=== PATIENT | male | born 1985 | race Caucasian/White ===

== ENCOUNTER 2019-10-07 09:46 | Emergency (ER) | payer OTHER, SELFPAY ==
[2019-10-07 09:49] VITALS: BP 137/97; PULSE 104; RESP 18; TEMP 38; O2SAT 96; BMI 35.7
--- NOTE | 2019-10-07 10:05 | ED_ITS ---
HPI - Pediatric Fever General: Chief Complaint: Fever Stated Complaint: Fever Time Seen by Provider: 10/07/19 10:05 PFSH ED PFSH: Statuses (acute, chronic, etc) shown below reflect problem list status as previously entered and may not be historically accurate Social History Smoking and tobacco status: current every day smoker Course ED course: [address] [address] XRay Report Signed Patient: Kranthi Morales MR#: [id number] : 1985 Acct:[id number] Age/Sex: 34 / M ADM Date: 10/07/19 Loc: ER Attending Dr: Ordering Physician: Adriana Jones Date of Service: 10/07/19 Procedure(s): XR chest 1V portable [id number] Accession Number(s): [id number] Report Number: [id number] WS: [id number] Portable AP upright chest, 10/07/2019 Clinical Data: fever Comparison: None. Findings: No nodules, masses or effusions are seen. The heart is normal. The pulmonary vascularity is not increased. No pneumonia or pneumothorax is seen. XR/XR chest 1V portable [id number] Impression: Negative chest. Dictated By: India Bernal MD Signed By: India Bernal MD Signed Date/Time:10/07/19 1036 DD/ 1036 Vital Signs: Vital signs: Vital Signs Temperature 100.4 F H 10/07/19 09:49 Pulse Rate 104 H 10/07/19 09:49 Respiratory Rate 18 10/07/19 09:49 Blood Pressure 137/97 10/07/19 09:49 Pulse Oximetry 96 10/07/19 09:49 Medical Decision Making Lab Data: Labs: Lab Results 10/07/19 Range/Units 10:34 WBC 11.2 H (4.0-10.0) 10^3/ uL RBC 5.54 H (4.1-5.3) 10^6/u L Hgb 16.5 (11.7-16.6) g/dL Hct 47.5 (42.0-52.0) % MCV 85.7 (80-94) fL MCH 29.8 (28.0-34.0) pg MCHC 34.7 (30.0-36.0) g/dL RDW 12.1 (12.1-15.1) % Plt Count 188 (130-400) 10^3/c mm MPV 8.6 (7.4-10.4) fL Neut % (Auto) 77.3 % Lymph % (Auto) 11.5 % [place] % (Auto) 10.6 % Eos % (Auto) 0.0 % Baso % (Auto) 0.2 % Neut # (Auto) 8.7 H (1.8-7.7) 10^3/u L Lymph # (Auto) 1.3 (0.8-4.8) 10^3/u L [place] # (Auto) 1.2 H (0.2-0.9) 10^3/u L Eos # (Auto) 0.0 (0.0-0.8) 10^3/u L Baso # (Auto) 0.0 (0.0-0.1) 10^3/u L Nucleated RBC % (a uto) 0 % Nucleated RBCs # 0.0 /100WBC Discharge Plan Discharge Prescriptions: No Action No Known Home Medications RF: 0 Coding Level of Care Code ED Certified Respiratory Therapist for [facility]
--- NOTE | 2019-10-07 10:18 | XR_ITS ---
WS: [id number] Portable AP upright chest, 10/07/2019 Clinical Data: fever Comparison: None. Findings: No nodules, masses or effusions are seen. The heart is normal. The pulmonary vascularity is not increased. No pneumonia or pneumothorax is seen. XR/XR chest 1V portable [id number] Impression: Negative chest.
--- NOTE | 2019-10-07 10:20 | PC.NURSE ---
pt to room. pt placed on O2 saturation and NIBP monitor. Pt placed in bed, HOB elevated, brakes on, bed in low position.
--- NOTE | 2019-10-07 10:34 | PC.NURSE ---
CXR at bedside
[2019-10-07] MEDS: acetaminophen 500 mg Tablet PO (10:39)
[2019-10-07] MEDS: sodium chloride 0.9% 1,000 ML 999 ML IV (10:39)
--- NOTE | 2019-10-07 10:40 | PC.NURSE ---
FLU SWAB COLLECTED by nurse. labeled and sent to lab
[2019-10-07 10:41] LABS: Basophils % 0.2 %; Hematocrit 47.5 % (42.0-52.0); Hemoglobin 16.5 g/dL (11.7-16.6); Lymphocytes # 1.3 10^3/uL (0.8-4.8); Lymphocytes % 11.5 %; Mean Corpuscular HGB Conc 34.7 g/dL (30.0-36.0); Mean Corpuscular Hemoglobin 29.8 pg (28.0-34.0); Mean Corpuscular Volume 85.7 fL (80-94); Mean Platelet Volume 8.6 fL (7.4-10.4); Monocytes # 1.2 10^3/uL (0.2-0.9); Monocytes % 10.6 %; Neutrophils # 8.7 10^3/uL (1.8-7.7); Neutrophils % 77.3 %; Nucleated Red Blood Cells % 0 %; Platelet Count 188 10^3/cmm (130-400); Red Blood Count 5.54 10^6/uL (4.1-5.3); Red Cell Distribution Width 12.1 % (12.1-15.1); White Blood Count 11.2 10^3/uL (4.0-10.0)
[2019-10-07 11:07] LABS: Alanine Aminotransferase 48 U/L (0-41); Albumin Level 4.2 g/dL (3.5-5.2); Alkaline Phosphatase 76 IU/L (40-130); Anion Gap 16.8 (5-19); Aspartate Amino Transferase 20 U/L (0-40); Blood Urea Nitrogen 12 mg/dL (6-20); Calcium 9.2 mg/Dl (8.6-10.0); Carbon Dioxide 23 mmol/L (22-29); Chloride 98 mmol/L (98-107); Globulin 2.8 g/dL (1.3-4.6); Glomerular Filtration Rate 97.8 mL/min (90-130); Glucose 128 mg/dL (74-109); Potassium 3.8 mmol/L (3.5-5.1); Sodium 134 mmol/L (136-145); Total Bilirubin 0.8 mg/dL (0.15-1.2)
[2019-10-07 11:53] VITALS: BP 127/78; PULSE 95; TEMP 37.5; O2SAT 95
--- NOTE | 2019-10-07 11:55 | W.ED.FEVER ---
HPI - Fever General: Chief Complaint: Fever Stated Complaint: Fever Time Seen by Provider: 10/07/19 10:05 Source: patient Mode of arrival: ambulatory Limitations: no limitations History of Present Illness: HPI Narrative: fever as high as 102 measured x few days ; complains of body aches, congestion, sore throat MD elicited complaint: fever Onset (ago): day(s) Measured temperature: 102 F Associated symptoms: Deny abdominal pain, chest pain, diarrhea, dysuria, headache(s), nausea or vomiting Treatments prior to arrival fever: acetaminophen Review of Systems Const: Reports: fever and body aches ENMT: Reports: throat pain Card: Denies: chest pain, palpitations, lightheadedness, syncope or pre-syncope Resp: Denies: shortness of breath or productive cough GI: Denies: abdominal pain, nausea, vomiting or diarrhea : Denies: difficulty urinating or painful urination Musc: Denies: neck pain or back pain Skin/Breast: Denies: rash Neuro: Denies: headache PFSH ED PFSH: Statuses (acute, chronic, etc) shown below reflect problem list status as previously entered and may not be historically accurate Social History Smoking and tobacco status: current every day smoker Physical Exam Const: COMMON NORMALS: no apparent distress, oriented x3, no limitations and well nourished GENERAL APPEARANCE: cooperative and well developed HENMT: COMMON NORMALS: normocephalic, head/scalp atraumatic, external ears normal, EAC's normal and external nose normal HEAD & SCALP: normocephalic and atraumatic FACE & SINUS: sinus tenderness maxillary (mild bilaterally) NOSE: external nose normal EXTERNAL EAR: Yes external ears normal EXTERNAL AUDITORY CANAL: EAC's normal MOUTH: oral and palatal mucosa normal THROAT: posterior oropharynx normal, tonsils normal and uvula midline Neck/C-Spine: COMMON NORMALS: full ROM, no lymphadenopathy and no meningeal signs Chest: COMMONS NORMALS: inspection of chest normal Resp: COMMON NORMALS: normal respiratory effort and clear to auscultation bilaterally AUSCULTATION: clear to auscultation bilaterally Cardio: COMMON NORMALS: regular rate and regular rhythm RATE: regular rate RHYTHM: regular rhythm GI: COMMON NORMALS: normal to inspection, nondistended, normoactive bowel sounds INSPECTION: Yes normal to inspection AUSCULTATION: Yes normoactive bowel sounds Extremity: COMMON NORMALS: normal to inspection Neuro: COMMON NORMALS: oriented x3 MENINGEAL SIGNS: Yes no meningeal signs GAIT: Yes normal gait Skin: COMMON NORMALS: no rashes or lesions noted and skin turgor normal GENERAL SKIN EXAM: no rashes or lesions noted and turgor normal Course ED course: [address] [address] XRay Report Signed Patient: Kranthi Morales MR#: [id number] : 1985 Acct:[id number] Age/Sex: 34 / M ADM Date: 10/07/19 Loc: ER Attending Dr: Ordering Physician: Adriana Jones Date of Service: 10/07/19 Procedure(s): XR chest 1V portable [id number] Accession Number(s): [id number] Report Number: [id number] WS: [id number] Portable AP upright chest, 10/07/2019 Clinical Data: fever Comparison: None. Findings: No nodules, masses or effusions are seen. The heart is normal. The pulmonary vascularity is not increased. No pneumonia or pneumothorax is seen. XR/XR chest 1V portable [id number] Impression: Negative chest. Dictated By: India Bernal MD Signed By: India Bernal MD Signed Date/Time:10/07/19 1036 DD/ 1036 Vital Signs: Vital signs: Vital Signs Temperature 99.5 F 10/07/19 11:53 Pulse Rate 95 10/07/19 11:53 Respiratory Rate 18 10/07/19 09:49 Blood Pressure 127/78 10/07/19 11:53 Pulse Oximetry 95 10/07/19 11:53 MDM - Fever Lab Data: Attestation: I reviewed the patient's lab results. Labs: Lab Results 10/07/19 10/07/19 10/07/19 Range/Units 10:34 10:34 10:41 WBC 11.2 H (4.0-10.0) 10^3/ uL RBC 5.54 H (4.1-5.3) 10^6/u L Hgb 16.5 (11.7-16.6) g/dL Hct 47.5 (42.0-52.0) % MCV 85.7 (80-94) fL MCH 29.8 (28.0-34.0) pg MCHC 34.7 (30.0-36.0) g/dL RDW 12.1 (12.1-15.1) % Plt Count 188 (130-400) 10^3/c mm MPV 8.6 (7.4-10.4) fL Neut % (Auto) 77.3 % Lymph % (Auto) 11.5 % [place] % (Auto) 10.6 % Eos % (Auto) 0.0 % Baso % (Auto) 0.2 % Neut # (Auto) 8.7 H (1.8-7.7) 10^3/u L Lymph # (Auto) 1.3 (0.8-4.8) 10^3/u L [place] # (Auto) 1.2 H (0.2-0.9) 10^3/u L Eos # (Auto) 0.0 (0.0-0.8) 10^3/u L Baso # (Auto) 0.0 (0.0-0.1) 10^3/u L Nucleated RBC % (a uto) 0 % Nucleated RBCs # 0.0 /100WBC Sodium 134 L (136-145) mmol/L Potassium 3.8 (3.5-5.1) mmol/L Chloride 98 (98-107) mmol/L Carbon Dioxide 23 (22-29) mmol/L Anion Gap 16.8 (5-19) BUN 12 (6-20) mg/dL Creatinine 0.9 (0.7-1.2) mg/dL GFR Calculation 97.8 (90-130) mL/min Glucose 128 H (74-109) mg/dL Calcium 9.2 (8.6-10.0) mg/Dl Total Bilirubin 0.8 (0.15-1.2) mg/dL AST 20 (0-40) U/L ALT 48 H (0-41) U/L Alkaline Phosphata se 76 (40-130) IU/L Total Protein 7.0 (6.6-8.7) g/dL Albumin 4.2 (3.5-5.2) g/dL Globulin 2.8 (1.3-4.6) g/dL Urine Color (Yellow) Urine Appearance (CLEAR) Urine pH (5-7) Ur Specific Gravit y (1.005-1.030) Urine Protein (Negative) Urine Glucose (UA) (Normal) Urine Ketones (Negative) Urine Occult Blood (Negative) Urine Nitrate (Negative) Urine Bilirubin (NEGATIVE) Urine Urobilinogen (Negative) mg/dL Ur Leukocyte [place] ase (Negative) Influenza Type A A g Negative (Negative) POC Influenza B Ag Negative (Negative) 10/07/19 Range/Units 12:22 WBC (4.0-10.0) 10^3/ uL RBC (4.1-5.3) 10^6/u L Hgb (11.7-16.6) g/dL Hct (42.0-52.0) % MCV (80-94) fL MCH (28.0-34.0) pg MCHC (30.0-36.0) g/dL RDW (12.1-15.1) % Plt Count (130-400) 10^3/c mm MPV (7.4-10.4) fL Neut % (Auto) % Lymph % (Auto) % [place] % (Auto) % Eos % (Auto) % Baso % (Auto) % Neut # (Auto) (1.8-7.7) 10^3/u L Lymph # (Auto) (0.8-4.8) 10^3/u L [place] # (Auto) (0.2-0.9) 10^3/u L Eos # (Auto) (0.0-0.8) 10^3/u L Baso # (Auto) (0.0-0.1) 10^3/u L Nucleated RBC % (a uto) % Nucleated RBCs # /100WBC Sodium (136-145) mmol/L Potassium (3.5-5.1) mmol/L Chloride (98-107) mmol/L Carbon Dioxide (22-29) mmol/L Anion Gap (5-19) BUN (6-20) mg/dL Creatinine (0.7-1.2) mg/dL GFR Calculation (90-130) mL/min Glucose (74-109) mg/dL Calcium (8.6-10.0) mg/Dl Total Bilirubin (0.15-1.2) mg/dL AST (0-40) U/L ALT (0-41) U/L Alkaline Phosphata se (40-130) IU/L Total Protein (6.6-8.7) g/dL Albumin (3.5-5.2) g/dL Globulin (1.3-4.6) g/dL Urine Color Yellow (Yellow) Urine Appearance Clear (CLEAR) Urine pH 7.0 (5-7) Ur Specific Gravit y 1.005 (1.005-1.030) Urine Protein Neg (Negative) Urine Glucose (UA) Norm (Normal) Urine Ketones Negative (Negative) Urine Occult Blood Neg (Negative) Urine Nitrate Negative (Negative) Urine Bilirubin Neg (NEGATIVE) Urine Urobilinogen 1 H (Negative) mg/dL Ur Leukocyte [place] ase Negative (Negative) Influenza Type A A g (Negative) POC Influenza B Ag (Negative) Discharge Plan Discharge Patient Disposition: Home, Self-Care Clinical Impression: Viral illness Condition: Stable Prescriptions: No Action No Known Home Medications RF: 0 Discharge Orders: Discharge Order (Routine); Ordered 10/07/19 Ordered By: Adriana Jones Discharge Diet: Advance as tolerated Discharge Activity: Increase activity as tolerated Patient Instructions: Fever - Adult, Viral Syndrome (ED) Activity Restrictions/Additional Instructions: Tylenol/Motrin as directed for fevers/body aches. Rest. Push fluids. Follow up with primary care in 3-4 days for continued symptoms. Coding Level of Care Code ED Studio Designer for [facility] rGeen Exam Problem Focused
[2019-10-07 12:33] LABS: Add Urine Microscopic? NO
[2019-10-07 12:36] LABS: Urine Appearance Clear (CLEAR); Urine Color Yellow (Yellow)
[2019-10-07 12:37] LABS: Bilirubin Urine Neg (NEGATIVE); Blood Urine Neg (Negative); Glucose Urine UA Norm (Normal); Ketones Urine Negative (Negative); Leukocyte Esterase Urine Negative (Negative); Nitrate Urine Negative (Negative); Protein Urine Neg (Negative); Specific Gravity, Urine 1.005 (1.005-1.030); Urobilinogen Urine 1 mg/dL (Negative)
[2019-10-07 13:01] LABS: Influenza A by IFA Negative (Negative)
[2019-10-07 13:02] LABS: Influenza B by IFA Negative (Negative)
[2019-10-07 13:32] VITALS: BP 137/76; PULSE 86; TEMP 37; O2SAT 95
== END 2019-10-07 13:32 | disposition home or self-care (01) ==
PROVIDERS: Emergency Provider Physician Assistant
DX: B34.9 Viral infection, unspecified (principal); F17.210 Nicotine dependence, cigarettes, uncomplicated
CPT/HCPCS: 71045; 80053; 81003; 85025; 87804; 96360; 99281; J7030

== ENCOUNTER 2022-03-31 23:40 | Emergency (ER) | payer MEDICAID, SELFPAY ==
[2022-04-01 00:32] VITALS: BP 116/81; PULSE 90; RESP 18; TEMP 36.8; O2SAT 97; BMI 39.5
[2022-04-01 00:57] VITALS: BP 145/98; PULSE 93; RESP 18; O2SAT 98
[2022-04-01 01:13] LABS: Basophils # 0.1 10^3/uL (0.0-0.1); Basophils % 0.7 %; Eosinophils # 0.1 10^3/uL (0.0-0.8); Eosinophils % 1.3 %; Hematocrit 49.1 % (42.0-52.0); Hemoglobin 17.7 g/dL (11.7-16.6); Lymphocytes # 2.4 10^3/uL (0.8-4.8); Lymphocytes % 27.4 %; Mean Corpuscular Hemoglobin 30.3 pg (28.0-34.0); Mean Corpuscular Volume 83.9 fl (80-94); Mean Platelet Volume 8.8 fL (7.4-10.4); Monocytes % 11.3 %; Neutrophils # 5.19 10^3/uL (1.8-7.7); Neutrophils % 59.1 %; Nucleated Red Blood Cells % 0 %; Platelet Count 233 10^3/cmm (130-400); Red Blood Count 5.85 10^6/uL (4.1-5.3); Red Cell Distribution Width 12.5 % (12.1-15.1); White Blood Count 8.8 10^3/uL (4.0-10.0)
[2022-04-01 01:36] LABS: Alanine Aminotransferase 58 U/L (0-41); Albumin Level 4.3 g/dL (3.5-5.2); Alkaline Phosphatase 79 IU/L (40-130); Anion Gap 13.9 (5-19); Aspartate Amino Transferase 21 U/L (0-40); Blood Urea Nitrogen 17 mg/dL (6-20); Calcium 8.9 mg/dL (8.5-10.5); Carbon Dioxide 25 mmol/L (22-29); Chloride 104 mmol/L (98-107); Globulin 2.8 g/dL (1.3-4.6); Glucose 102 mg/dL (65-115); Lipase 16 U/L (13-60); Osmolality Calculated 290 mOsm/kg (285-295); Potassium 3.9 mmol/L (3.5-5.1); Sodium 139 mmol/L (136-145); Total Bilirubin 0.5 mg/dL (0.15-1.2); Total Protein 7.1 g/dL (6.6-8.7)
[2022-04-01 01:37] LABS: Add Urine Microscopic? NO; Charge for UA Resulting for Rev
[2022-04-01 01:41] LABS: Bilirubin Urine Neg (Negative); Blood Urine Neg (Negative); Glucose Urine UA Norm (Normal); Ketones Urine Negative (Negative); Leukocyte Esterase Urine Negative (Negative); Nitrate Urine Negative (Negative); Protein Urine Neg (Negative); Specific Gravity, Urine 1.015 (1.005-1.030); Urine Appearance Clear (CLEAR); Urine Color Yellow (Yellow); Urobilinogen Urine Norm (Negative); pH Urine 7 (5-7)
--- NOTE | 2022-04-01 01:57 | CTR_ITS ---
PROCEDURE INFORMATION: Exam: CT Abdomen And Pelvis Without Contrast Exam date and time: 04/01/2022 2:10 AM Age: 37 years old Clinical indication: Abdominal pain; Localized; Left lower quadrant (llq); Prior surgery; Surgery type: Gb; Patient HX: C/O llq/rectal pain; Additional info: Llq pain and rectal pain TECHNIQUE: Imaging protocol: Computed tomography of the abdomen and pelvis without contrast. Radiation optimization: All CT scans at this facility use at least one of these dose optimization techniques: automated exposure control; mA and/or kV adjustment per patient size (includes targeted exams where dose is matched to clinical indication); or iterative reconstruction. COMPARISON: CR XR chest 1V portable [id number] 10/07/2019 10:29 AM RADIATION DOSE METRICS: Total DLP (mGy-cm): 2105.26 FINDINGS: Liver: Normal. No mass. Gallbladder and bile ducts: Status post cholecystectomy. Pancreas: Normal. No ductal dilation. Spleen: Normal. No splenomegaly. Adrenal glands: Normal. No mass. Kidneys and ureters: Normal. No hydronephrosis. Stomach and bowel: Unremarkable. No obstruction. No mucosal thickening. Appendix: The appendix is visualized and is normal in configuration. Intraperitoneal space: Unremarkable. No free air. No significant fluid collection. Vasculature: Unremarkable. No abdominal aortic aneurysm. Lymph nodes: There are small retroperitoneal lymph nodes seen that are below CT criteria for lymphadenopathy. Urinary bladder: Unremarkable as visualized. Reproductive: Unremarkable as visualized. Bones/joints: Unremarkable. No acute fracture. Soft tissues: Unremarkable. CT/CT abdomen pelvis wo con [id number] IMPRESSION: There are no acute abdominal findings.
--- NOTE | 2022-04-01 01:58 | W.ED.ABDPA2 ---
HPI - Abdominal Pain General: Chief Complaint: Abdominal Pain Stated Complaint: rectal issues/left leg numbness/abdominal pain Time Seen by Provider: 04/01/22 00:52 History of Present Illness: Patient is a 37-year-old male comes to the ED with abdominal pain and rectal pain. Patient says symptoms started approximately 3 days ago. Abdominal pain is located in the left lower quadrant of the abdomen and radiates down to his left groin. Pain is rated mild to moderate and is episodic. He also reports having some constant rectal pain that has gotten more tender and painful over the past 3 days. He says sitting in certain positions causes discomfort. Denies any current rectal bleeding. He has been having normal daily bowel movements over the past couple days and denies any straining or constipation. Associated Symptoms: Denies chills, constipation, diarrhea, dysuria, fever(s), hematochezia, hematuria, nausea and vomiting Review of Systems Const: Denies: fever(s), chills or fatigue Eyes: Denies: change in vision or eye discomfort ENMT: Denies: throat pain, odynophagia, nasal discharge or nasal congestion Card: Denies: chest pain, palpitations, edema, swelling of feet/ankles, dyspnea on exertion or orthopnea Resp: Denies: dyspnea, productive cough or non-productive cough GI: Reports: abdominal pain (Left lower quadrant) and rectal pain; Denies: nausea, vomiting, diarrhea, constipation or hematochezia : Denies: flank pain, difficulty urinating, dysuria or hematuria Musc: Denies: neck pain, back pain or extremity swelling Skin/Breast: Denies: rash or new lesions Neuro: Denies: headache(s), numbness in extremities or weakness in extremities PFSH ED PFSH: Medical History No pertinent family history No pertinent past medical history Social History Smoking and tobacco status: current every day smoker Physical Exam Const: COMMON NORMALS: no acute distress, patient oriented x3 and alert GENERAL APPEARANCE: cooperative and comfortable HENMT: COMMON NORMALS: normocephalic HEAD & SCALP: normocephalic MOUTH: Normal oral and palatal mucosa present THROAT: posterior oropharynx normal and uvula midline Neck/C-Spine: COMMON NORMALS: supple GENERAL: Yes normal visual inspection Resp: COMMON NORMALS: normal respiratory effort, No retractions, No use of accessory muscles and clear to auscultation bilaterally AUSCULTATION: clear to auscultation bilaterally Cardio: COMMON NORMALS: regular rate, regular rhythm, S1 normal heart sound present, S2 normal heart sound present, No gallops present (Cardio), No clicks present (Cardio), No murmurs present (Cardio) and Peripheral pulses 2+ throughout RATE: regular rate RHYTHM: regular rhythm HEART SOUNDS: S1 normal heart sound present and S2 normal heart sound present PERIPHERAL PULSES: Peripheral pulses 2+ throughout GI: COMMON NORMALS: Normal to inspection, nondistended, normoactive bowel sounds present, Soft to palpation, non-tender and no masses PALPATION: Yes Soft to palpation RECTAL EXAM: Yes hemorrhoids, Yes tenderness and Yes other (No visible blood or bleeding noted.) : COMMON NORMALS: Yes no CVA tenderness BLADDER/KIDNEY EXAM: Yes no CVA tenderness Back/Pelvis: COMMON NORMALS: no CVA tenderness Extremity: COMMON NORMALS: normal to inspection Neuro: COMMON NORMALS: patient oriented x3 SENSORIUM/ORIENTATION: Yes alert GAIT: Yes Normal gait present Skin: GENERAL SKIN EXAM: dry skin Course Vital Signs: Vital signs: Vital Signs Temperature 98.2 F 04/01/22 00:32 Pulse Rate 96 04/01/22 02:51 Respiratory Rate 18 04/01/22 02:51 Blood Pressure 155/93 04/01/22 02:51 Pulse Oximetry 97 04/01/22 02:51 MDM - Abdominal Pain Medical Decision Making Patient is a 37-year-old male comes to the ED with left lower quadrant abdominal pain and rectal pain. Exam shows hemorrhoids and left lower quadrant abdominal tenderness. Vitals are stable. Labs are unremarkable. CT of abdomen pelvis showed no acute findings. Patient was diagnosed with hemorrhoids and was discharged home with a prescription for Anusol. He was told to follow-up with PCP in the next week for reevaluation. Return ED precautions given. Patient understood and agreed with plan. Lab Data I reviewed the patient's lab results. : 04/01/22 01:00 04/01/22 01:00 Labs/Radiology: Radiology Impressions Abdomen/Pelvis CT 04/01/22 01:57 IMPRESSION: There are no acute abdominal findings. Laboratory Results WBC 8.8 10^3/uL (4.0-10.0) 04/01/22 01:00 RBC 5.85 10^6/uL (4.1-5.3) H 04/01/22 01:00 Hgb 17.7 g/dL (11.7-16.6) H 04/01/22 01:00 Hct 49.1 % (42.0-52.0) 04/01/22 01:00 MCV 83.9 fl (80-94) 04/01/22 01:00 MCH 30.3 pg (28.0-34.0) 04/01/22 01:00 MCHC 36.0 g/dL (30.0-36.0) 04/01/22 01:00 RDW 12.5 % (12.1-15.1) 04/01/22 01:00 Plt Count 233 10^3/cmm (130-400) 04/01/22 01:00 MPV 8.8 fL (7.4-10.4) 04/01/22 01:00 Neut % (Auto) 59.1 % 04/01/22 01:00 Lymph % (Auto) 27.4 % 04/01/22 01:00 [place] % (Auto) 11.3 % 04/01/22 01:00 Eos % (Auto) 1.3 % 04/01/22 01:00 Baso % (Auto) 0.7 % 04/01/22 01:00 Neut # (Auto) 5.19 10^3/uL (1.8-7.7) 04/01/22 01:00 Lymph # (Auto) 2.4 10^3/uL (0.8-4.8) 04/01/22 01:00 [place] # (Auto) 1.0 10^3/uL (0.2-0.9) H 04/01/22 01:00 Eos # (Auto) 0.1 10^3/uL (0.0-0.8) 04/01/22 01:00 Baso # (Auto) 0.1 10^3/uL (0.0-0.1) 04/01/22 01:00 Nucleated RBC % (auto) 0 % 04/01/22 01:00 Nucleated RBCs # 0.0 /100WBC 04/01/22 01:00 Sodium 139 mmol/L (136-145) 04/01/22 01:00 Potassium 3.9 mmol/L (3.5-5.1) 04/01/22 01:00 Chloride 104 mmol/L (98-107) 04/01/22 01:00 Carbon Dioxide 25 mmol/L (22-29) 04/01/22 01:00 Anion Gap 13.9 (5-19) 04/01/22 01:00 BUN 17 mg/dL (6-20) 04/01/22 01:00 Creatinine 0.8 mg/dL (0.7-1.2) 04/01/22 01:00 GFR Calculation 110.0 mL/min (90-130) 04/01/22 01:00 Glucose 102 mg/dL (65-115) 04/01/22 01:00 Calculated Osmolality 290 mOsm/kg (285-295) 04/01/22 01:00 Calcium 8.9 mg/dL (8.5-10.5) 04/01/22 01:00 Total Bilirubin 0.5 mg/dL (0.15-1.2) 04/01/22 01:00 AST 21 U/L (0-40) 04/01/22 01:00 ALT 58 U/L (0-41) H 04/01/22 01:00 Alkaline Phosphatase 79 IU/L (40-130) 04/01/22 01:00 Total Protein 7.1 g/dL (6.6-8.7) 04/01/22 01:00 Albumin 4.3 g/dL (3.5-5.2) 04/01/22 01:00 Globulin 2.8 g/dL (1.3-4.6) 04/01/22 01:00 Lipase 16 U/L (13-60) 04/01/22 01:00 Urine Color Yellow (Yellow) 04/01/22 01:30 Urine Appearance Clear (CLEAR) 04/01/22 01:30 Urine pH 7 (5-7) 04/01/22 01:30 Ur Specific [place] 1.015 (1.005-1.030) 04/01/22 01:30 Urine Protein Neg (Negative) 04/01/22 01:30 Urine Glucose (UA) Norm (Normal) 04/01/22 01:30 Urine Ketones Negative (Negative) 04/01/22 01:30 Urine Blood Neg (Negative) 04/01/22 01:30 Urine Nitrate Negative (Negative) 04/01/22 01:30 Urine Bilirubin Neg (Negative) 04/01/22 01:30 Urine Urobilinogen Norm mg/dL (Negative) 04/01/22 01:30 Ur Leukocyte Esterase Negative (Negative) 04/01/22 01:30 Discharge Plan Discharge Patient Disposition: Home Clinical Impression: Hemorrhoids Qualifiers: Hemorrhoid type: unspecified Qualified Code(s): K64.9 - Unspecified hemorrhoids Condition: Stable Prescriptions: New Anusol-HC 2.5 % cream with perineal applicator 1 applic OK Q8H PRN (Reason: hemorrhoids and rectal pain) Qty: 30 0RF Discharge Orders: Discharge ED (Routine); Ordered 04/01/22 Ordered By: Ney Ford Discharge Diet: Regular Discharge Activity: Resume usual activity Patient Instructions: Hemorrhoids (DC), Sitz Bath (DC) Activity Restrictions/Additional Instructions: Follow-up with medical provider as directed in the next 5-7 days for reevaluation. Take medications as prescribed. Eat high-fiber diet drink plenty of water to help keep stools soft and regular. You can take [id number] stool softeners or MiraLAX as needed if you have any constipation. Return to the ER or your medical provider if condition worsens. Please read and understand discharge instructions. Thank you for choosing [facility] for your healthcare needs today. Please realize this is an emergency room and that we are providing you with a medical screening exam and this may not be complete and all inclusive of all the testing and or work up that you may need to determine your ailment or severity of your illness. It is very important that you follow up as instructed or that you return to the Emergency Department should you have concerns or if your condition changes or worsens in any way. Coding Level of Care Code ED Back Tender Pulp Drier for [facility] Exam Comprehensive
[2022-04-01 02:51] VITALS: BP 155/93; PULSE 96; RESP 18; O2SAT 97
== END 2022-04-01 02:52 | disposition home or self-care (01) ==
PROVIDERS: Emergency Provider Physician Assistant
DX: K64.9 Unspecified hemorrhoids (principal); F17.210 Nicotine dependence, cigarettes, uncomplicated
CPT/HCPCS: 74176; 80053; 81003; 83690; 85025; 99283

== ENCOUNTER 2022-06-03 01:17 | Emergency (ER) | payer MEDICAID, SELFPAY ==
[2022-06-03 01:22] VITALS: BP 139/93; PULSE 91; RESP 18; TEMP 36.7; O2SAT 97; BMI 39.6
--- NOTE | 2022-06-03 02:04 | ED_ITS ---
HPI - General Adult General: Chief complaint: General Medical Stated complaint: Rectial Pain Time Seen by Provider: 06/03/22 01:29 History of Present Illness: 37-year-old male who past what he says is a significant amount of blood in his stool a couple hours prior to arrival. He notes there was a clot that was stringy on the paper. He has rectal pain associated with this. This happened a couple of weeks ago, and he presented here, but cannot afford his medication to fill at the pharmacy. He was told he had hemorrhoids at that point. No fever, no vomiting, no other episodes of blood in the stool besides these 2. He had been using sitz bath's at home with some improvement. Onset (ago): hour(s) Location: buttocks Radiation: non-radiation Severity: moderate Quality: burning Pain Consistency: intermittent Relieving factors: none Exacerbating factors: none Associated symptoms: Reports nausea; Deny chest pain, dyspnea, fevers/chills, short of breath, vomiting or weakness Review of Systems Const: Denies: fever(s) or chills Card: Denies: chest pain Resp: Denies: dyspnea GI: Reports: nausea; Denies: vomiting [facility] ED PFSH: Medical History No pertinent family history No pertinent past medical history Social History Smoking and tobacco status: current every day smoker Physical Exam Const: GENERAL APPEARANCE: anxious; not ill appearing HENMT: COMMON NORMALS: normocephalic and atraumatic HEAD & SCALP: normocephalic and atraumatic Eye: COMMON NORMALS: Equal, round and reactive pupils present and EOMs intact bilaterally PUPIL: Yes Equal, round and reactive pupils present Chest: CHEST: Yes Symmetrical chest wall rise Resp: COMMON NORMALS: normal respiratory effort, No use of accessory muscles and clear to auscultation bilaterally AUSCULTATION: clear to auscultation bilaterally Cardio: COMMON NORMALS: regular rate and regular rhythm RATE: regular rate RHYTHM: regular rhythm GI: COMMON NORMALS: Normal to inspection, nondistended, normoactive bowel sounds present and Soft to palpation PALPATION: Yes Soft to palpation and Yes Tenderness to palpation present (GI) Details: LLQ (minimal) RECTAL EXAM: Yes normal sphincter tone, No heme positive stool, No hemorrhoids, No Rectal prolapse, No Fistula present (GI), No fecal impaction, Yes Anal fissure(s) present and Yes tenderness Extremity: COMMON NORMALS: no pedal edema Neuro: LAUREL COMA SCALE: document GCS findings [place] coma scale eye opening: Spontaneous [place] coma scale verbal response: Orientated [place] coma scale motor response: Obey commands Laurel coma scale total score: 15 Course Vital Signs: Vital signs: Vital Signs Temperature 98.1 F 06/03/22 01:22 Pulse Rate 91 06/03/22 01:22 Respiratory Rate 18 06/03/22 01:22 Blood Pressure 139/93 06/03/22 01:22 Pulse Oximetry 97 06/03/22 01:22 Oxygen Delivery Me thod 06/03/22 01:22 MDM - General Adult Medical Decision Making Anal fissure. No active bleeding. We will treat accordingly. Discharge Plan Discharge Patient Disposition: Home Clinical Impression: Acute anal fissure Condition: Stable Prescriptions: New Anusol-HC 25 mg suppository 25 mg [place] BID Qty: 10 0RF Colace 100 mg capsule 100 mg PO DAILY Qty: 10 0RF Discontinued hydrocortisone [Anusol-HC] 2.5 % cream with perineal applicator 1 applic FL Q8H PRN (Reason: hemorrhoids and rectal pain) Qty: 30 0RF Discharge Orders: Discharge ED (Routine); Ordered 06/03/22 Ordered By: Hong Hong Patient Instructions: Anal Fissure (ED) Activity Restrictions/Additional Instructions: Medication as directed. Return for continued passage of large amounts of blood with clots despite treatment, fever greater than 100, increasing belly pain, vomiting, any other concerning symptoms. Coding Level of Care Code ED Manager Roofing for [employer]
[2022-06-03 02:14] VITALS: RESP 17; O2SAT 98
== END 2022-06-03 02:15 | disposition home or self-care (01) ==
PROVIDERS: Emergency Provider Emergency Medicine
DX: K60.0 Acute anal fissure (principal); F17.210 Nicotine dependence, cigarettes, uncomplicated
CPT/HCPCS: 99283

== ENCOUNTER → 2022-11-08 14:03 | Outpatient (BNVA) | payer BC, SELFPAY | PROVIDERS: PCP Family Medicine; Visit Provider Registered Nurse Neonatal Intensive Care | DX: R50.9 Fever, unspecified (principal); B34.9 Viral infection, unspecified | CPT/HCPCS: 87400 ==

== ENCOUNTER 2024-01-19 09:01 | Emergency (ER) | payer BC, MEDICAID, SELFPAY ==
[2024-01-19 09:30] VITALS: BP 132/81; PULSE 88; RESP 18; TEMP 36.8; O2SAT 99; BMI 40.4
[2024-01-19 09:32] VITALS: O2SAT 100
--- NOTE | 2024-01-19 09:34 | W.ED.SKABFB ---
HPI - Skin/Abscess/Foreign Bdy General: Chief complaint: Extremity Problem,Nontraumatic Stated complaint: bee sting Time Seen by Provider: 01/19/24 09:02 Source: patient Mode of arrival: ambulatory Limitations: no limitations History of Present Illness: Patient is a 38-year-old male who presents to ED today with a complaint of a possible sting to his right hand. Patient states yesterday evening he was reaching to open a door when he felt a sting/bite to the dorsal aspect of the right hand. Patient states area began swelling immediately. Patient states he never developed any other symptoms apart from the edema. He states he does have a history of previous bee stings causing internal swelling . States he has never had to be intubated for anaphylactic reactions previously. Patient states he sought medical evaluation this morning because he feels like swelling might be moving up into his forearm. He has not noticed any lip or tongue swelling. No shortness of breath or difficulty breathing. MD complaint: insect bite/sting Onset (ago): day(s) (yesterday evening) Tetanus up to date: yes Location: R hand Severity: mild Relieving factors: none Exacerbating factors: none Context: witnessed insect bite Associated symptoms: Reports no associated symptoms; Deny chills, fever(s), nausea or vomiting Treatments prior to arrival: none Review of Systems Const: Denies: fever(s), chills or body aches ENMT: Denies: uvular edema, enlarged tonsils, odynophagia or swelling of lips/tongue Card: Denies: chest pain Resp: Denies: dyspnea GI: Denies: abdominal pain, nausea or vomiting Musc: Reports: extremity pain and extremity swelling; Denies: neck pain, back pain, joint pain or joint swelling Neuro: Denies: numbness in extremities, weakness in extremities or sensory changes PFSH ED PFSH: Medical History Anal fissure No pertinent family history Surgical History History of cholecystectomy Lap. Family History Mother CAD (coronary artery disease) Diabetes Father Cancer Lymphoma Grandfather Cancer eye cancer/blood cancer Sister Psychiatric illness Bipolar Denies family history of Clotting disorder Dementia Hyperlipidemia Chronic kidney disease (CKD) Suicide Anesthesia complication Bleeding disorder Family history of premature coronary artery disease Lung disease Hypertension Stroke Social History Smoking and tobacco/nicotine status: current every day tobacco/nicotine user e-cigarettes Quit status (tobacco/nicotine): considering quitting Second hand smoke exposure: Yes Alcohol intake: never Substance/Drug Use: never Physical Exam Const: COMMON NORMALS: no acute distress, patient oriented x3, no limitations, alert and well nourished GENERAL APPEARANCE: cooperative HENMT: FACE & SINUS: normal facial exam MOUTH: Normal oral and palatal mucosa present, lip normal and other (no angioedema) THROAT: no uvular edema Eye: GENERAL EYE: appearance normal, both eyes and all related structures Neck/C-Spine: COMMON NORMALS: no lymphadenopathy GENERAL: Yes normal visual inspection, No anterior neck swelling and No submandibular swelling Extremity: COMMON NORMALS: full ROM and capillary refill normal GENERAL: Yes normal exam except as noted RIGHT UPPER EXTREMITY: Yes hand & digits OTHER: small sting like lesion overlying dorsal 5th MCP joint; he has diffuse edema to dorsal hand consistent with localized reaction; no forearm swelling noted; no lymphangitic streaking; no findings to suggest any type of infection/necrosis; full painless ROM of all digits Neuro: COMMON NORMALS: patient oriented x3, moves all extremities, no focal motor deficits and no sensory deficits noted SENSORIUM/ORIENTATION: Yes alert Skin: NARRATIVE SKIN EXAM: localized edema dorsal R hand Course Vital Signs: Vital signs: Vital Signs Temperature 98.2 F 01/19/24 09:30 Pulse Rate 88 01/19/24 09:30 Respiratory Rate 18 01/19/24 09:30 Blood Pressure 132/81 01/19/24 09:30 Pulse Oximetry 99 01/19/24 09:30 Oxygen Delivery Me thod Room Air 01/19/24 09:30 MDM - Skin/Abscess/Foreign Bdy Medicial Decision Making Patient is having a normal localized reaction most likely to a bee/wasp sting. Recommend ice, elevation, OTC Benadryl. Ultimately time will heal. Was given IM Solu-Medrol prior to discharge. No radiology studies performed this visit Discharge Plan Discharge Patient Disposition: Home Clinical Impression: Accidental insect sting Condition: Stable Prescriptions: No Action escitalopram oxalate [Lexapro] 5 mg tablet 5 mg PO DAILY Qty: 30 0RF albuterol sulfate [Ventolin HFA] 90 mcg/actuation HFA aerosol inhaler 2 puff inhalation Q6H PRN (Reason: shortness of breath or wheezing) Qty: 8.5 0RF Discharge Orders: Discharge ED (Routine); Ordered 01/19/24 Ordered By: Adriana Jones Referrals: Ritchie rFanco DO [Primary Care Provider] - Patient Instructions: Insect Bite or Sting (ED) Activity Restrictions/Additional Instructions: As we discussed you can ice and elevate the extremity. You may take 50 mg of Benadryl every 4-6 hours. Time will ultimately improve the swelling. 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
[2024-01-19] MEDS: methylPREDNISolone sod succ 125 mg/2 mL INJ IM (09:45)
[2024-01-19 09:54] VITALS: BP 132/81; PULSE 97; O2SAT 100
== END 2024-01-19 09:55 | disposition home or self-care (01) ==
PROVIDERS: Emergency Provider Physician Assistant; PCP Family Medicine
DX: T63.481A Toxic effect of venom of other arthropod, accidental (unintentional), initial encounter (principal); F17.290 Nicotine dependence, other tobacco product, uncomplicated
CPT/HCPCS: 96372; 99284; J2919

== ENCOUNTER 2024-04-24 19:47 | Emergency (ER) | payer BC, MEDICAID, SELFPAY ==
[2024-04-24 19:52] VITALS: BP 160/80; PULSE 118; RESP 20; TEMP 37.5; O2SAT 95; BMI 43.5
--- NOTE | 2024-04-24 20:18 | CTR_ITS ---
PROCEDURE INFORMATION: Exam: CT Abdomen And Pelvis With Contrast Exam date and time: 04/24/2024 8:41 PM Age: 39 years old Clinical indication: Prior surgery; Surgery date: Post-operative (0-2 days); Surgery type: Surgery for rectal fissure two days ago. Gb. Patient HX: C/O increasing pelvic pain since surgery for rectal fissure two days ago. ; Additional info: Pelvic pain, recent rectal surgery TECHNIQUE: Imaging protocol: Computed tomography of the abdomen and pelvis with contrast. Radiation optimization: All CT scans at this facility use at least one of these dose optimization techniques: automated exposure control; mA and/or kV adjustment per patient size (includes targeted exams where dose is matched to clinical indication); or iterative reconstruction. Contrast material: OMNI 350; Contrast volume: 100 ml; Contrast route: INTRAVENOUS (IV); COMPARISON: CT abdomen pelvis wo con [id number] 04/01/2022 2:10 AM RADIATION DOSE METRICS: Total DLP (mGy-cm): 1484.63 FINDINGS: Liver: There is a diffuse decrease in hepatic parenchymal density, consistent with fatty infiltration. Gallbladder and biliary ducts: There has been a cholecystectomy. There is no common bile duct dilation. Pancreas: The pancreas is normal. Spleen: The spleen is normal. Adrenal glands: The adrenal glands are normal. Kidneys and ureters: There is no evidence of hydronephrosis. There is no evidence of renal calcifications. There is no evidence of hydronephrosis. There is no evidence of renal calcifications. Stomach and bowel: There is no evidence of intestinal perforation or obstruction. There is no evidence of colitis/diverticulitis. No perirectal fluid collection or abscess. Appendix: A normal appendix is identified. Intraperitoneal space: Unremarkable. No free air. No significant fluid collection. Vasculature: The aorta is normal. Lymph nodes: Unremarkable.No enlarged lymph nodes. Urinary bladder: There is nonspecific bladder wall thickening. This may be related to incomplete distention. Reproductive: Unremarkable as visualized. Bones/joints: There are moderate degenerative changes in the spine. No acute bony abnormality. Soft tissues: There is a fat-containing umbilical hernia. There are small bilateral fat filled inguinal hernias. There is mild skin thickening and haziness of the subcutaneous fat posterior to the anus and medial aspect of the buttocks with trace subcutaneous emphysema posterior and left of the anus without localized fluid collection such as a hematoma or abscess compatible with the history of recent surgery. Mild cellulitis cannot be excluded. CT/CT abdomen pelvis w con* [id number] IMPRESSION: 1. There is mild skin thickening and haziness of the subcutaneous fat posterior to the anus and medial aspect of the buttocks with trace subcutaneous emphysema posterior and left of the anus without localized fluid collection such as a hematoma or abscess compatible with the history of recent surgery. Mild cellulitis cannot be excluded. 2. No additional acute abnormality.
[2024-04-24 20:28] VITALS: BP 124/74
[2024-04-24 20:42] LABS: Basophils # 0.1 10^3/uL (0.0-0.1); Basophils % 0.5 %; Eosinophils # 0.1 10^3/uL (0.0-0.8); Eosinophils % 0.5 %; Hematocrit 49.2 % (37-53); Lymphocytes # 2.2 10^3/uL (0.8-4.8); Mean Corpuscular HGB Conc 34.8 g/dL (30-55); Mean Corpuscular Hemoglobin 30.4 pg (27-33); Mean Corpuscular Volume 87.4 fl (82-101); Mean Platelet Volume 8.6 fL (7.4-10.4); Monocytes # 1.1 10^3/uL (0.2-0.9); Monocytes % 9.1 %; Neutrophils # 8.85 10^3/uL (1.8-7.7); Neutrophils % 71.6 %; Nucleated Red Blood Cells % 0 %; Platelet Count 212 10^3/cmm (157-399); Red Blood Count 5.63 10^6/uL (3.85-5.65); Red Cell Distribution Width 12.6 % (12.1-15.1); White Blood Count 12.36 10^3/uL (3.29-11.43)
[2024-04-24] MEDS: iohexol 350 mg/mL 500 mL Btl (per mL) IV (20:43)
[2024-04-24 21:03] LABS: Alanine Aminotransferase 78 U/L (0-41); Albumin Level 4.1 g/dL (3.5-5.2); Alkaline Phosphatase 82 U/L (40-130); Aspartate Amino Transferase 27 U/L (0-40); Blood Urea Nitrogen 11 mg/dL (6-20); Calcium 9.1 mg/dL (8.5-10.5); Carbon Dioxide 22 mmol/L (22-29); Chloride 102 mmol/L (98-107); Globulin 2.9 g/dL (1.3-4.6); Glucose 114 mg/dL (65-115); Osmolality Calculated 282 mOsm/kg (285-295); Sodium 136 mmol/L (136-145); Total Bilirubin 0.8 mg/dL (0.15-1.2)
--- NOTE | 2024-04-24 21:29 | ED_ITS ---
HPI - Abdominal Pain 2 General: Chief Complaint: Abdominal Pain Stated Complaint: post surgury veins in groin hurt Time Seen by Provider: 04/24/24 20:06 History of Present Illness: Patient states he is having chronic groin pain more down in his suprapubic/mons region. Patient states he has had this pain for a while but has gotten worse since he just recently had rectal surgery for what sounds like a rectal fissure and/or fistula. The surgery went fine but ever since then he has been having more pain in his right and left flexural creases and his left side of his mons. Patient thinks he has a hernia. Review of Systems 2 General: Reports: 10 or more systems reviewed and unremarkable except in HPI and below PFSH ED 2 PFSH: Medical History Anal fissure No pertinent family history Surgical History History of cholecystectomy Lap. Family History Mother CAD (coronary artery disease) Diabetes Father Cancer Lymphoma Grandfather Cancer eye cancer/blood cancer Sister Psychiatric illness Bipolar Denies family history of Clotting disorder Dementia Hyperlipidemia Chronic kidney disease (CKD) Suicide Anesthesia complication Bleeding disorder Family history of premature coronary artery disease Lung disease Hypertension Stroke Social History Smoking and tobacco/nicotine status: current every day tobacco/nicotine user e- cigarettes Quit status (tobacco/nicotine): considering quitting Second hand smoke exposure: Yes Alcohol intake: never Substance/Drug Use: never Physical Exam 2 Const: COMMON NORMALS: no acute distress, average body habitus, patient oriented x3, no limitations, healthy appearing, alert and well nourished HENMT: COMMON NORMALS: normocephalic, atraumatic, hearing grossly normal bilaterally, external ears normal, Normal external nose present and moist oral mucous membranes HEAD & SCALP: normocephalic and atraumatic NOSE: Normal external nose present EXTERNAL EAR: Yes external ears normal Neck/C-Spine: COMMON NORMALS: no JVD Chest: COMMONS NORMALS: normal inspection of the chest and normal palpation of entire chest wall Resp: COMMON NORMALS: normal respiratory effort, No retractions, No use of accessory muscles and clear to auscultation bilaterally AUSCULTATION: clear to auscultation bilaterally Cardio: COMMON NORMALS: no JVD, regular rate, regular rhythm, S1 normal heart sound present, S2 normal heart sound present, No gallops present (Cardio), No clicks present (Cardio), No murmurs present (Cardio) and No rub (Cardio) R ATE: regular rate RHYTHM: regular rhythm HEART SOUNDS: S1 normal heart sound present and S2 normal heart sound present GI: COMMON NORMALS: Normal to inspection, nondistended, normoactive bowel sounds present, Soft to palpation, non-tender, No hepatosplenomegaly present and no masses PALPATION: Yes Soft to palpation and Yes No hepatosplenomegaly present : OTHER: Tender with palpation over left and right flexural creases and left side of mons area, no obvious hernia defect or mass noted. Nonerythematous normal exam other than tenderness Neuro: COMMON NORMALS: patient oriented x3 SENSORIUM/ORIENTATION: Yes alert Course 2 Vital Signs: Vital signs: Vital Signs Temperature 99.5 F 04/24/24 19:52 Pulse Rate 118 H 04/24/24 19:52 Respiratory Rate 20 H 04/24/24 19:52 Blood Pressure 124/74 04/24/24 20:28 Pulse Oximetry 95 04/24/24 19:52 Oxygen Delivery Me thod Room Air 04/24/24 19:52 MDM - Abdominal Pain Medical Decision Making Physical exam was performed as well as blood work included CBC CMP, abdomen pelvis CT with contrast was shown no acute abnormality in the area of concern postsurgical changes in the area of the rectum. These results was discussed with the patient patient be discharged home. Differential Diagnosis Unlikely abdominal pain, acute appendicitis, calculus of kidney, constipation, diverticulitis, endometriosis, gastroenteritis, pancreatitis or small bowel obstruction Medical Records I reviewed the patient's medical records. Lab Data I reviewed the patient's lab results. 04/24/24 20:31 04/24/24 20:31 Labs/Radiology: Radiology Impressions Abdomen/Pelvis CT 04/24/24 20:18 IMPRESSION: 1. There is mild skin thickening and haziness of the subcutaneous fat posterior to the anus and medial aspect of the buttocks with trace subcutaneous emphysema posterior and left of the anus without localized fluid collection such as a hematoma or abscess compatible with the history of recent surgery. Mild cellulitis cannot be excluded. 2. No additional acute abnormality. Laboratory Results WBC 12.36 10^3/uL (3.29-11.43) H 04/24/24 20: RBC 5.63 10^6/uL (3.85-5.65) 04/24/24 20: Hgb 17.10 g/dL (11.27-16.99) H 04/24/24 20: Hct 49.2 % (37-53) 04/24/24: MCV 87.4 fl (82-101) 04/24/24 20: MCH 30.4 pg (27-33) 04/24/24: MCHC 34.8 g/dL (30-55) 04/24/24: RDW 12.6 % (12.1-15.1) 04/24/24: Plt Count 212 10^3/cmm (157-399) 04/24/24: MPV 8.6 fL (7.4-10.4) 04/24/24 20: Neut % (Auto) 71.6 % 04/24/24: Lymph % (Auto) 18.0 % 04/24/24: [place] % (Auto) 9.1 % 04/24/24: Eos % (Auto) 0.5 % 04/24/24 20: Baso % (Auto) 0.5 % 04/24/24: Neut # (Auto) 8.85 10^3/uL (1.8-7.7) H 04/24/24: Lymph # (Auto) 2.2 10^3/uL (0.8-4.8) 04/24/24: [place] # (Auto) 1.1 10^3/uL (0.2-0.9) H 04/24/24: Eos # (Auto) 0.1 10^3/uL (0.0-0.8) 04/24/24: Baso # (Auto) 0.1 10^3/uL (0.0-0.1) 04/24/24: Nucleated RBC % (auto) 0 % 04/24/24: Nucleated RBCs # 0.0 /100WBC 04/24/24 20:31 Sodium 136 mmol/L (136-145) 04/24/24 20:31 Potassium 4.0 mmol/L (3.5-5.1) 04/24/24 20:31 Chloride 102 mmol/L (98-107) 04/24/24 20:31 Carbon Dioxide 22 mmol/L (22-29) 04/24/24 20:31 Anion Gap 16.0 (5-19) 04/24/24 20:31 BUN 11 mg/dL (6-20) 04/24/24 20:31 Creatinine 0.9 mg/dL (0.7-1.2) 04/24/24 20:31 GFR Calculation 95.0 mL/min (90-130) 04/24/24 20:31 Glucose 114 mg/dL (65-115) 04/24/24 20:31 Calculated Osmolality 282 mOsm/kg (285-295) L 04/24/24 20:31 Calcium 9.1 mg/dL (8.5-10.5) 04/24/24 20:31 Total Bilirubin 0.8 mg/dL (0.15-1.2) 04/24/24 20:31 AST 27 U/L (0-40) 04/24/24 20:31 ALT 78 U/L (0-41) H 04/24/24 20:31 Alkaline Phosphatase 82 U/L (40-130) 04/24/24 20:31 Total Protein 7.0 g/dL (6.6-8.7) 04/24/24 20:31 Albumin 4.1 g/dL (3.5-5.2) 04/24/24 20:31 Globulin 2.9 g/dL (1.3-4.6) 04/24/24 20:31 All radiology interpretation(s) finalized by discharge Discharge Plan Discharge Patient Disposition: Home Clinical Impression: Male pelvic pain Condition: Stable Prescriptions: No Action albuterol sulfate [Ventolin HFA] 90 mcg/actuation HFA aerosol inhaler 2 puff inhalation Q6H PRN (Reason: shortness of breath or wheezing) Qty: 8.5 0RF hydrocortisone acetate [Anusol-HC] 25 mg suppository 25 mg [place] BID Qty: 24 0RF Discharge Orders: Discharge ED (Routine); Ordered 04/24/24 Ordered By: Jaxon Newman Referrals: Aileen Turner DO [Primary Care Provider] - 1 week Patient Instructions: Pelvic Pain in Men (ED) Activity Restrictions/Additional Instructions: Your evaluation in the ER that included blood work and contrasted abdominal pelvic CT scan did not show any acute abnormality for your symptomatology. Please follow-up with family practice physician within the next 7 to 10 days for further evaluation and treatment. Thank you for choosing [facility] for your healthcare needs today. Please realize that you were seen in the emergency department and that we are providing you with an emergency medical screening exam and this may not be a complete and all exclusive of all testing and/or medical workup we may need to determine your element or severity of your illness. It is very important that you follow-up as instructed with your primary care provider or specialist for the additional evaluation and to discuss your medical treatment plan. You may return to the emergency department should you have concerns or if your condition changes or worsens in any way. 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
[2024-04-24 22:45] VITALS: PULSE 106; RESP 16; O2SAT 94
== END 2024-04-24 22:50 | disposition home or self-care (01) ==
PROVIDERS: Emergency Provider Emergency Medicine; PCP Family Medicine
DX: R10.2 Pelvic and perineal pain (principal); F17.290 Nicotine dependence, other tobacco product, uncomplicated
CPT/HCPCS: 36415; 74177; 80053; 85025; 99285; Q9967

== ENCOUNTER 2024-04-30 19:01 | Emergency (ER) | payer BC, MEDICAID, SELFPAY ==
[2024-04-30 19:03] VITALS: BP 151/89; PULSE 96; RESP 16; TEMP 36.8; O2SAT 96
[2024-04-30 19:48] VITALS: BP 173/106; PULSE 99; RESP 18; O2SAT 98
[2024-04-30 19:51] VITALS: RESP 20
[2024-04-30] MEDS: morphine 4 mg/mL SDV 1 mL IM (19:51)
[2024-04-30 20:15] LABS: Basophils # 0.1 10^3/uL (0.0-0.1); Basophils % 0.8 %; Eosinophils # 0.1 10^3/uL (0.0-0.8); Eosinophils % 1.8 %; Hematocrit 48.2 % (37-53); Lymphocytes # 2.3 10^3/uL (0.8-4.8); Lymphocytes % 28.6 %; Mean Corpuscular HGB Conc 33.8 g/dL (30-55); Mean Corpuscular Hemoglobin 30.3 pg (27-33); Mean Corpuscular Volume 89.6 fl (82-101); Mean Platelet Volume 8.4 fL (7.4-10.4); Monocytes # 0.8 10^3/uL (0.2-0.9); Monocytes % 9.5 %; Neutrophils # 4.66 10^3/uL (1.8-7.7); Neutrophils % 59.2 %; Nucleated Red Blood Cells % 0 %; Platelet Count 256 10^3/cmm (157-399); Red Blood Count 5.38 10^6/uL (3.85-5.65); Red Cell Distribution Width 12.6 % (12.1-15.1); White Blood Count 7.87 10^3/uL (3.29-11.43)
[2024-04-30 20:18] VITALS: BP 145/84; PULSE 91; RESP 18; O2SAT 98
[2024-04-30 20:37] LABS: Alanine Aminotransferase 67 U/L (0-41); Alkaline Phosphatase 88 U/L (40-130); Anion Gap 18.9 (5-19); Aspartate Amino Transferase 27 U/L (0-40); Blood Urea Nitrogen 17 mg/dL (6-20); Carbon Dioxide 22 mmol/L (22-29); Chloride 103 mmol/L (98-107); Globulin 3.1 g/dL (1.3-4.6); Glucose 107 mg/dL (65-115); Osmolality Calculated 292 mOsm/kg (285-295); Potassium 3.9 mmol/L (3.5-5.1); Sodium 140 mmol/L (136-145); Total Bilirubin 0.4 mg/dL (0.15-1.2); Total Protein 7.1 g/dL (6.6-8.7)
--- NOTE | 2024-04-30 21:46 | ED_ITS ---
HPI - GI Bleed 2 General: Chief complaint: GI Bleed Stated complaint: feels a colon tear, prior surgury Time Seen by Provider: 04/30/24 19:10 Source: patient Mode of arrival: ambulatory Limitations: no limitations History of Present Illness: Patient is a 39-year-old male who presents to the emergency department complaining of rectal pain and bleeding postoperatively. He underwent a fistula repair/fissure surgery on 04/22 at [facility], and was seen subsequently on 04/24 here in the emergency department for the same symptoms of pain and bleeding. He had a negative CT at that time and negative lab work and was discharged home. He has been taking [place] for pain, states today he noticed more bleeding and felt a tear and wants reevaluation. He has no other new symptoms to report, including no abdominal pain, nausea, vomiting, fevers, or other symptoms at this time. He states the pain medications have started to not help. Currently stating the pain is a 10/10. He denies any changes in bowel habits. MD complaint: other (Rectal pain/rectal bleeding) Onset (ago): day(s) Severity: similar to previous episodes Relieving factors: none Exacerbating factors: bowel movement (Wiping) Context: other (Recent surgery) Associated symptoms: Denies abdominal pain, chills, fever(s), headache(s), nausea, rash or vomiting Review of Systems 2 General: Reports: 10 or more systems reviewed and unremarkable except in HPI and below Const: Denies: fever(s), chills, change in appetite, change in weight or diaphoresis ENMT: Denies: throat pain or hoarseness Card: Denies: chest pain, palpitations or lightheadedness Resp: Denies: dyspnea, productive cough or wheezing GI: Reports: rectal pain (With bleeding); Denies: abdominal pain, nausea, vomiting, diarrhea, constipation, bloating, change in stool character or hematochezia : Denies: flank pain, difficulty urinating, dysuria, urinary frequency or urinary urgency Musc: Denies: neck pain or back pain Skin/Breast: Denies: rash or new lesions Neuro: Denies: headache(s) or dizziness PFSH ED 2 PFSH: Medical History Anal fissure No pertinent family history Surgical History History of cholecystectomy Lap. Family History Mother CAD (coronary artery disease) Diabetes Father Cancer Lymphoma Grandfather Cancer eye cancer/blood cancer Sister Psychiatric illness Bipolar Denies family history of Clotting disorder Dementia Hyperlipidemia Chronic kidney disease (CKD) Suicide Anesthesia complication Bleeding disorder Family history of premature coronary artery disease Lung disease Hypertension Stroke Social History Smoking and tobacco/nicotine status: current every day tobacco/nicotine user e- cigarettes Quit status (tobacco/nicotine): considering quitting Second hand smoke exposure: Yes Alcohol intake: never Substance/Drug Use: never Physical Exam 2 Const: COMMON NORMALS: no acute distress, patient oriented x3, no limitations, healthy appearing, alert and well nourished GENERAL APPEARANCE: cooperative and comfortable NUTRITIONAL APPEARANCE: obese morbidly obese O RIENTATION/CONSCIOUSNESS: Yes awake HENMT: COMMON NORMALS: normocephalic, atraumatic, hearing grossly normal bilaterally, external ears normal, Normal external nose present, Normal nasal mucous membranes and turbinates present and moist oral mucous membranes HEAD & SCALP: normocephalic and atraumatic NOSE: Normal external nose present and Normal nasal mucous membranes and turbinates present EXTERNAL EAR: Yes external ears normal Eye: COMMON NORMALS: Equal, round and reactive pupils present, EOMs intact bilaterally, conjunctivae normal and normal visual altman by confrontation C ONJUNCTIVA: Yes conjunctivae normal PUPIL: Yes Equal, round and reactive pupils present Neck/C-Spine: COMMON NORMALS: full ROM, supple, no meningeal signs and no JVD Resp: COMMON NORMALS: normal respiratory effort, No retractions, No use of accessory muscles and clear to auscultation bilaterally AUSCULTATION: clear to auscultation bilaterally, no crackles, no rales, no rhonchi and no wheezes Cardio: COMMON NORMALS: no JVD, regular rate, regular rhythm, S1 normal heart sound present, S2 normal heart sound present, No gallops present (Cardio), No clicks present (Cardio), No murmurs present (Cardio), No rub (Cardio) and Peripheral pulses 2+ throughout RATE: regular rate RHYTHM: regular rhythm HEART SOUNDS: S1 normal heart sound present and S2 normal heart sound present PERIPHERAL PULSES: Peripheral pulses 2+ throughout GI: COMMON NORMALS: Normal to inspection, nondistended, normoactive bowel sounds present, Soft to palpation, non-tender, No hepatosplenomegaly present and no masses AUSCULTATION: Yes normoactive bowel sounds PALPATION: Yes Soft to palpation, No Guarding due to palpation present (GI), No Rigid due to palpation and Yes No hepatosplenomegaly present OTHER: No active bleeding on examination of the rectum. The area is tender to the touch perianally. No evidence of fistula or anal fissure, but anus does appear irritated. Extremity: COMMON NORMALS: normal to inspection and full ROM Neuro: COMMON NORMALS: patient oriented x3, moves all extremities, no focal motor deficits and no sensory deficits noted SENSORIUM/ORIENTATION: Yes alert MENINGEAL SIGNS: Yes no meningeal signs Psych: COMMON NORMALS: mental status grossly normal, cooperative and speech normal SPEECH: Yes normal speech Skin: COMMON NORMALS: no rashes or lesions noted GENERAL SKIN EXAM: no rashes or lesions noted Course 2 Vital Signs: Vital signs: Vital Signs Temperature 98.3 F 04/30/24 19:03 Pulse Rate 91 04/30/24 20:18 Respiratory Rate 18 04/30/24 20:18 Blood Pressure 145/84 04/30/24 20:18 Pulse Oximetry 98 04/30/24 20:18 Oxygen Delivery Me thod Room Air 04/30/24 19:03 MDM - GI Bleed Medical Decision Making Patient seen for the second time in a week for postoperative rectal pain and bleeding. His procedure was performed at [facility], he has not had follow-up appointment scheduled. He is reporting continued pain and bleeding, but felt a tear today. Examination did not reveal any acute injury or active bleeding to the rectum. In addition his blood work was all normal or improved from prior labs obtained a week ago. No imaging necessary at this time. He is given morphine to control his pain. I spoke with [facility], specifically Dr. Harris who is aware of patient's procedure, and recommends patient call their office Friday to schedule follow-up appointment and that there is no further workup that needs to be done at this time. He does recommend adding topical lidocaine for pain control. This is relayed to the patient who becomes somewhat irritated, however says he will call on Friday. Will add the topical lidocaine and he is informed to return with any significant increase in bleeding or other new symptoms. Lab Data 04/30/24 20:09 04/30/24 20:09 Laboratory Results WBC 7.87 10^3/uL (3.29-11.43) 04/30/24 20:09 RBC 5.38 10^6/uL (3.85-5.65) 04/30/24 20:09 Hgb 16.30 g/dL (11.27-16.99) 04/30/24 20:09 Hct 48.2 % (37-53) 04/30/24 20:09 MCV 89.6 fl (82-101) 04/30/24 20:09 MCH 30.3 pg (27-33) 04/30/24 20:09 MCHC 33.8 g/dL (30-55) 04/30/24 20:09 RDW 12.6 % (12.1-15.1) 04/30/24 20:09 Plt Count 256 10^3/cmm (157-399) 04/30/24 20:09 MPV 8.4 fL (7.4-10.4) 04/30/24 20:09 Neut % (Auto) 59.2 % 04/30/24 20:09 Lymph % (Auto) 28.6 % 04/30/24 20:09 [place] % (Auto) 9.5 % 04/30/24 20:09 Eos % (Auto) 1.8 % 04/30/24 20:09 Baso % (Auto) 0.8 % 04/30/24 20:09 Neut # (Auto) 4.66 10^3/uL (1.8-7.7) 04/30/24 20:09 Lymph # (Auto) 2.3 10^3/uL (0.8-4.8) 04/30/24 20:09 [place] # (Auto) 0.8 10^3/uL (0.2-0.9) 04/30/24 20:09 Eos # (Auto) 0.1 10^3/uL (0.0-0.8) 04/30/24 20:09 Baso # (Auto) 0.1 10^3/uL (0.0-0.1) 04/30/24 20:09 Nucleated RBC % (auto) 0 % 04/30/24 20:09 Nucleated RBCs # 0.0 /100WBC 04/30/24 20:09 Sodium 140 mmol/L (136-145) 04/30/24 20:09 Potassium 3.9 mmol/L (3.5-5.1) 04/30/24 20:09 Chloride 103 mmol/L (98-107) 04/30/24 20:09 Carbon Dioxide 22 mmol/L (22-29) 04/30/24 20:09 Anion Gap 18.9 (5-19) 04/30/24 20:09 BUN 17 mg/dL (6-20) 04/30/24 20:09 Creatinine 0.9 mg/dL (0.7-1.2) 04/30/24 20:09 GFR Calculation 95.0 mL/min (90-130) 04/30/24 20:09 Glucose 107 mg/dL (65-115) 04/30/24 20:09 Calculated Osmolality 292 mOsm/kg (285-295) 04/30/24 20:09 Calcium 9.0 mg/dL (8.5-10.5) 04/30/24 20:09 Total Bilirubin 0.4 mg/dL (0.15-1.2) 04/30/24 20:09 AST 27 U/L (0-40) 04/30/24 20:09 ALT 67 U/L (0-41) H 04/30/24 20:09 Alkaline Phosphatase 88 U/L (40-130) 04/30/24 20:09 Total Protein 7.1 g/dL (6.6-8.7) 04/30/24 20:09 Albumin 4.0 g/dL (3.5-5.2) 04/30/24 20:09 Globulin 3.1 g/dL (1.3-4.6) 04/30/24 20:09 No radiology studies performed this visit Discharge Plan Discharge Patient Disposition: Home Clinical Impression: Rectal pain Condition: Stable Prescriptions: New lidocaine 5 % ointment 1 applic topical TID Qty: 30 0RF No Action albuterol sulfate [Ventolin HFA] 90 mcg/actuation HFA aerosol inhaler 2 puff inhalation Q6H PRN (Reason: shortness of breath or wheezing) Qty: 8.5 0RF hydrocortisone acetate [Anusol-HC] 25 mg suppository 25 mg NC BID Qty: 24 0RF Discharge Orders: Discharge ED (Routine); Ordered 04/30/24 Ordered By: Gwyn Paredes Discharge Diet: Usual diet Discharge Activity: Increase activity as tolerated Patient Instructions: Rectal Pain (ED), Opioid Safety, Pain Management Activity Restrictions/Additional Instructions: Please call Mariana Ramos on Friday as discussed to schedule outpatient appointment. Apply lidocaine ointment. Continue taking your pain medications at home. Return if you develop any significant increase in bleeding or significant increase in pain. 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
== END 2024-04-30 21:08 | disposition home or self-care (01) ==
PROVIDERS: Emergency Provider Physician Assistant
DX: K62.89 Other specified diseases of anus and rectum (principal); F17.290 Nicotine dependence, other tobacco product, uncomplicated
CPT/HCPCS: 36415; 80053; 85025; 96372; 99284; J2270

== ENCOUNTER 2024-10-01 16:12 | Emergency (ER) | payer BC, MEDICAID, SELFPAY ==
[2024-10-01] VITALS (8 sets, daily range): BP systolic 128–162; BP diastolic 67–112; PULSE 73–108; RESP 16–18; TEMP 37.1; O2SAT 95–97; BMI 39.5
--- NOTE | 2024-10-01 19:55 | CTR_ITS ---
PROCEDURE INFORMATION: Exam: CT Abdomen And Pelvis With Contrast Exam date and time: 10/01/2024 8:21 PM Age: 39 years old Clinical indication: Prior surgery; Surgery date: 6+ months; Surgery type: Gb; Patient HX: C/O left to mid groin pain. Recent history of anal fissure. TECHNIQUE: Imaging protocol: Computed tomography of the abdomen and pelvis with contrast. Radiation optimization: All CT scans at this facility use at least one of these dose optimization techniques: automated exposure control; mA and/or kV adjustment per patient size (includes targeted exams where dose is matched to clinical indication); or iterative reconstruction. Contrast material: OMNI 350; Contrast volume: 100 ml; Contrast route: INTRAVENOUS (IV); COMPARISON: CT abdomen pelvis w con* [id number] 04/24/2024 8:41 PM RADIATION DOSE METRICS: Total DLP (mGy-cm): 1422.63 FINDINGS: Liver: Normal. No mass. Gallbladder and biliary ducts: The gallbladder has been removed. Pancreas: Normal. No ductal dilation. Spleen: Normal. No splenomegaly. Adrenal glands: Normal. No mass. Kidneys and ureters: Normal. No hydronephrosis. Stomach and bowel: There are small proximal large bowel diverticula with no gross evidence for diverticulitis. Appendix: A normal appendix is identified. Intraperitoneal space: Unremarkable. No free air. No significant fluid collection. Vasculature: Unremarkable. No abdominal aortic aneurysm. Lymph nodes: Unremarkable. No enlarged lymph nodes. Urinary bladder: Unremarkable as visualized. Reproductive: Unremarkable as visualized. Bones/joints: There are moderate degenerative changes in the visualized spine. Multilevel thoracic and lumbar degenerative Schmorl's nodes. Soft tissues: Tiny fat containing umbilical hernia. Small fat containing right inguinal hernia. CT/CT abdomen pelvis w con* [id number] IMPRESSION: No acute findings.Non acute findings as described above.
[2024-10-01 20:22] LABS: Basophils # 0.1 10^3/uL (0.0-0.1); Basophils % 0.7 %; Eosinophils # 0.2 10^3/uL (0.0-0.8); Eosinophils % 1.6 %; Hematocrit 51.7 % (37-53); Lymphocytes # 3.1 10^3/uL (0.8-4.8); Lymphocytes % 33.5 %; Mean Corpuscular Hemoglobin 29.6 pg (27-33); Mean Platelet Volume 8.8 fL (7.4-10.4); Monocytes # 0.8 10^3/uL (0.2-0.9); Monocytes % 9.1 %; Neutrophils # 5.05 10^3/uL (1.8-7.7); Neutrophils % 54.9 %; Nucleated Red Blood Cells % 0 %; Platelet Count 239 10^3/cmm (157-399); Red Blood Count 5.94 10^6/uL (3.85-5.65); Red Cell Distribution Width 12.4 % (12.1-15.1)
[2024-10-01] MEDS: iohexol 350 mg/mL 500 mL Btl (per mL) IV (20:23)
[2024-10-01 20:25] LABS: Bilirubin Urine Negative (Negative); Blood Urine Negative (Negative); Glucose Urine UA Negative (Normal); Ketones Urine Negative (Negative); Leukocyte Esterase Urine Negative (Negative); Nitrate Urine Negative (Negative); Protein Urine Negative (Negative); Specific Gravity, Urine 1.026 (1.005-1.030); Urine Appearance Clear (CLEAR); Urine Color Yellow (Yellow)
[2024-10-01 20:33] LABS: Anion Gap 14.2 (5-19); Blood Urea Nitrogen 18 mg/dL (6-20); Calcium 9.2 mg/dL (8.5-10.5); Carbon Dioxide 26 mmol/L (22-29); Chloride 103 mmol/L (98-107); Creatinine Clr Calc Pharmacy 162.7197; Glucose 96 mg/dL (65-115); Osmolality Calculated 290 mOsm/kg (285-295); Potassium 4.2 mmol/L (3.5-5.1); Sodium 139 mmol/L (136-145)
[2024-10-01 20:37] LABS: Add Urine Microscopic? YES; Bacteria Urine None Seen /hpf; RBC Urine 0-2 /hpf (0-2); Squamous Epithelial Cell Urine 0-5 /hpf (0-5); WBC Urine 0-5 /hpf (0-5)
--- NOTE | 2024-10-01 21:03 | W.ED.MALEGU ---
HPI - Male Genitourinary General: Chief complaint: Urogenital-Male Stated complaint: groin pain Time Seen by Provider: 10/01/24 19:21 History of Present Illness: Kranthi is a 39-year-old man that presents to the emergency department with suprapubic pain and numbness. Patient reports onset of symptoms approximately 1 week ago. Patient is concerned about blood clot. He had rectal surgery approximately 3 months ago. Patient denies penile pain or drainage. He denies any other complaints. He does report that this morning he had this cool numb sensation that radiated out from a knot in his suprapubic area that radiated to the left. It is not truly in his groin but rather left lower quadrant. He states he can feel or palpate a knot under the skin. There is no redness or warmth. No wounds or drainage. Related Data Previous Rx's Medication Instructions Recorded albuterol sulfate 90 mcg/actuation 2 puff inhalation Q6H PRN 11/08/22 aerosol inhaler (Ventolin HFA) shortness of breath or wheezing #8.5 grams hydrocortisone acetate 25 mg 25 mg NC BID #24 ea 02/03/24 rectal suppository (Anusol-HC) lidocaine 5 % topical ointment 1 applic topical TID #30 grams 04/30/24 Allergies Allergy/AdvReac Type Severity Reaction Status Date / Time silver nitrate Allergy Unknown Verified 10/01/24 16:18 venom-honey bee Allergy ALGY-Anaphy Verified 10/01/24 16:17 laxis Review of Systems General: Reports: 10 or more systems reviewed and unremarkable except in HPI and below PFSH ED PFSH: Medical History Anal fissure No pertinent family history Surgical History History of cholecystectomy Lap. Family History Mother CAD (coronary artery disease) Diabetes Father Cancer Lymphoma Grandfather Cancer eye cancer/blood cancer Sister Psychiatric illness Bipolar Denies family history of Clotting disorder Dementia Hyperlipidemia Chronic kidney disease (CKD) Suicide Anesthesia complication Bleeding disorder Family history of premature coronary artery disease Lung disease Hypertension Stroke Social History Smoking and tobacco/nicotine status: current every day tobacco/nicotine user e-cigarettes Quit status (tobacco/nicotine): considering quitting Second hand smoke exposure: Yes Alcohol intake: never Substance/Drug Use: never Physical Exam Const: COMMON NORMALS: no acute distress, average body habitus, patient oriented x3, no limitations, healthy appearing, alert and well nourished HENMT: COMMON NORMALS: normocephalic, atraumatic, hearing grossly normal bilaterally, external ears normal, Normal external nose present and moist oral mucous membranes HEAD & SCALP: normocephalic and atraumatic NOSE: Normal external nose present EXTERNAL EAR: Yes external ears normal Neck/C-Spine: COMMON NORMALS: no JVD Chest: COMMONS NORMALS: normal inspection of the chest and normal palpation of entire chest wall Resp: COMMON NORMALS: normal respiratory effort, No retractions, No use of accessory muscles and clear to auscultation bilaterally AUSCULTATION: clear to auscultation bilaterally Cardio: COMMON NORMALS: no JVD, regular rate and regular rhythm RATE: regular rate RHYTHM: regular rhythm GI: COMMON NORMALS: Normal to inspection, nondistended, normoactive bowel sounds present, Soft to palpation, non-tender, No hepatosplenomegaly present and no masses PALPATION: Yes Soft to palpation and Yes No hepatosplenomegaly present : OTHER: Tender with palpation over left and right flexural creases and left side of mons area, no obvious hernia defect or mass noted. Nonerythematous normal exam other than tenderness Neuro: COMMON NORMALS: patient oriented x3 SENSORIUM/ORIENTATION: Yes alert Course Vital Signs: Vital signs: Vital Signs Temperature 98.8 F 10/01/24 16:13 Pulse Rate 83 10/01/24 22:11 Respiratory Rate 16 10/01/24 22:11 Blood Pressure 152/92 10/01/24 22:11 Pulse Oximetry 97 10/01/24 22:11 Oxygen Delivery Me thod Room Air 10/01/24 21:58 MDM - Male Medical Decision Making Patient evaluated in the emergency department for suprapubic abdominal discomfort. Patient denies any penile pain or testicular pain. He has no groin pain. He has tenderness palpation over the left mons. He states he can feel a knot there that is not appreciable. Patient underwent laboratory evaluation as well as a CT. The CT was unremarkable. The laboratory evaluation did not reveal leukocytosis, anemias, electrolyte abnormalities. Kidney function is normal Urinalysis revealed no evidence of a UTI and his GC chlamydia was negative. Case management referral pending for urology follow-up. I have advised patient that he needs to work on primary care and can return to the emergency department as needed for new concerning or worsening symptoms. All questions answered Lab Data 10/01/24 20:06 10/01/24 20:06 Radiology Impressions Abdomen/Pelvis CT 10/01/24 19:55 IMPRESSION: No acute findings.Non acute findings as described above. Laboratory Results WBC 9.20 10^3/uL (3.29-11.43) 10/01/24 20:06 RBC 5.94 10^6/uL (3.85-5.65) H 10/01/24 20:06 Hgb 17.60 g/dL (11.27-16.99) H 10/01/24 20:06 Hct 51.7 % (37-53) 10/01/24 20:06 MCV 87.0 fl (82-101) 10/01/24 20:06 MCH 29.6 pg (27-33) 10/01/24 20:06 MCHC 34.0 g/dL (30-55) 10/01/24 20:06 RDW 12.4 % (12.1-15.1) 10/01/24 20:06 Plt Count 239 10^3/cmm (157-399) 10/01/24 20:06 MPV 8.8 fL (7.4-10.4) 10/01/24 20:06 Neut % (Auto) 54.9 % 10/01/24 20:06 Lymph % (Auto) 33.5 % 10/01/24 20:06 [place] % (Auto) 9.1 % 10/01/24 20:06 Eos % (Auto) 1.6 % 10/01/24 20:06 Baso % (Auto) 0.7 % 10/01/24 20:06 Neut # (Auto) 5.05 10^3/uL (1.8-7.7) 10/01/24 20:06 Lymph # (Auto) 3.1 10^3/uL (0.8-4.8) 10/01/24 20:06 [place] # (Auto) 0.8 10^3/uL (0.2-0.9) 10/01/24 20:06 Eos # (Auto) 0.2 10^3/uL (0.0-0.8) 10/01/24 20:06 Baso # (Auto) 0.1 10^3/uL (0.0-0.1) 10/01/24 20:06 Nucleated RBC % (auto) 0 % 10/01/24 20:06 Nucleated RBCs # 0.0 /100WBC 10/01/24 20:06 Sodium 139 mmol/L (136-145) 10/01/24 20:06 Potassium 4.2 mmol/L (3.5-5.1) 10/01/24 20:06 Chloride 103 mmol/L (98-107) 10/01/24 20:06 Carbon Dioxide 26 mmol/L (22-29) 10/01/24 20:06 Anion Gap 14.2 (5-19) 10/01/24 20:06 BUN 18 mg/dL (6-20) 10/01/24 20:06 Creatinine 0.9 mg/dL (0.7-1.2) 10/01/24 20:06 GFR Calculation 95.0 mL/min (90-130) 10/01/24 20:06 Glucose 96 mg/dL (65-115) 10/01/24 20:06 Calculated Osmolality 290 mOsm/kg (285-295) 10/01/24 20:06 Calcium 9.2 mg/dL (8.5-10.5) 10/01/24 20:06 Urine Color Yellow (Yellow) 10/01/24 20:15 Urine Appearance Clear (CLEAR) 10/01/24 20:15 Urine pH 6.0 (5-7) 10/01/24 20:15 Ur Specific [place] 1.026 (1.005-1.030) 10/01/24 20:15 Urine Protein Negative (Negative) 10/01/24 20:15 Urine Glucose (UA) Negative (Normal) 10/01/24 20:15 Urine Ketones Negative (Negative) 10/01/24 20:15 Urine Blood Negative (Negative) 10/01/24 20:15 Urine Nitrate Negative (Negative) 10/01/24 20:15 Urine Bilirubin Negative (Negative) 10/01/24 20:15 Urine Urobilinogen 1.0 mg/dL (Negative) 10/01/24 20:15 Ur Leukocyte Esterase Negative (Negative) 10/01/24 20:15 Urine RBC 0-2 /hpf (0-2) 10/01/24 20:15 Urine WBC 0-5 /hpf (0-5) 10/01/24 20:15 Ur Squamous Epith Cells 0-5 /hpf (0-5) 10/01/24 20:15 Urine Bacteria None seen /hpf (NONE) 10/01/24 20:15 Hyaline Casts 0.40 /lpf 10/01/24 20:15 C. trachomatis (PCR) Not detected 10/01/24 20:15 N. gonorrhoeae (PCR) Not detected 10/01/24 20:15 All radiology interpretation(s) finalized by discharge Discharge Plan Discharge Patient Disposition: Home Clinical Impression: Suprapubic pain Condition: Stable Prescriptions: No Action albuterol sulfate [Ventolin HFA] 90 mcg/actuation HFA aerosol inhaler 2 puff inhalation Q6H PRN (Reason: shortness of breath or wheezing) Qty: 8.5 0RF hydrocortisone acetate [Anusol-HC] 25 mg suppository 25 mg NC BID Qty: 24 0RF lidocaine 5 % ointment 1 applic topical TID Qty: 30 0RF Discharge Orders: Discharge ED (Routine); Ordered 10/01/24 Ordered By: Israel Roman Discharge Diet: Advance as tolerated Discharge Activity: Resume usual activity Patient Instructions: Pain Management, Abdominal Pain (ED) Coding Level of Care Code ED 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
[2024-10-01 21:58] LABS: Chlamydia Trachomatis NOT DETECTED; Neisseria Gonorrhea NOT DETECTED
== END 2024-10-01 22:29 | disposition home or self-care (01) ==
PROVIDERS: Emergency Provider Nurse Practitioner
DX: R10.2 Pelvic and perineal pain (principal); F17.290 Nicotine dependence, other tobacco product, uncomplicated
CPT/HCPCS: 36415; 74177; 80048; 81001; 85025; 87491; 87591; 99284

== ENCOUNTER 2025-06-30 13:15 | Inpatient (IN) | payer BC, MEDICAID, SELFPAY ==
[2025-06-30 13:16] VITALS: BP 158/100; PULSE 118; RESP 16; TEMP 36.9; O2SAT 99; BMI 39.5
--- NOTE | 2025-06-30 13:16 | ECG_ITS ---
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
[2025-06-30 13:41] LABS: Hematocrit 51.6 % (37-53); Hemoglobin 18.00 g/dL (11.27-16.99); Mean Corpuscular HGB Conc 34.9 g/dL (30-55); Mean Corpuscular Hemoglobin 30.0 pg (27-33); Mean Corpuscular Volume 86.0 fl (82-101); Nucleated Red Blood Cells % 0 %; Platelet Count 245 10^3/cmm (157-399); Red Blood Count 6.00 10^6/uL (3.85-5.65); White Blood Count 9.30 10^3/uL (3.29-11.43)
[2025-06-30 14:14] LABS: Acetaminophen < 5.0 ug/mL (10-30); Alanine Aminotransferase 63 U/L (0-41); Albumin Level 4.5 g/dL (3.5-5.2); Alcohol Level < 10 mg/dL (0-10); Alkaline Phosphatase 86 U/L (40-130); Anion Gap 17.0 (5-19); Aspartate Amino Transferase 25 U/L (0-40); Blood Urea Nitrogen 17 mg/dL (6-20); Calcium 9.5 mg/dL (8.5-10.5); Carbon Dioxide 21 mmol/L (22-29); Chloride 103 mmol/L (98-107); Creatinine Clr Calc Pharmacy 181.2823; Globulin 3.1 g/dL (1.3-4.6); Glucose 108 mg/dL (65-115); Osmolality Calculated 286 mOsm/kg (285-295); Potassium 4.0 mmol/L (3.5-5.1); Salicylate < 0.3 mg/dL (3-10); Sodium 137 mmol/L (136-145); Thyroid Stimulating Hormone 1.21 uIU/mL (0.27-4.20); Total Protein 7.6 g/dL (6.6-8.7)
[2025-06-30 14:55] VITALS: BP 166/104; PULSE 122; RESP 18; O2SAT 98
[2025-06-30 15:04] LABS: Glucose Urine UA Negative (Normal); Nitrate Urine Negative (Negative); Specific Gravity, Urine 1.023 (1.005-1.030)
[2025-06-30 15:07] LABS: Add Urine Microscopic? YES
[2025-06-30 15:17] LABS: PCP Screen Urine Negative (Negative)
[2025-06-30 19:59] VITALS: BP 144/99; PULSE 115; RESP 18; TEMP 37; O2SAT 95
[2025-07-01 06:00] VITALS: BP 133/93; PULSE 106; RESP 18; TEMP 37.1; O2SAT 96
--- NOTE | 2025-07-01 08:45 | NUR.SHIFT ---
hourly shift manager and reports that pt did not sleep all night. He rates his anxiety a 10/10 and depression 0/10. He talks about wanting to be d/c. When asked about having thoughts of hurting himself or others he states no SI, but HI he states only when I'm threatened He talks about his family feeling like he is psychotic and and he's not. He wants to see the Dr and be d/c today.
[2025-07-01] MEDS: diphenhydrAMINE 50 mg/mL SDV 1mL IM (10:08)
[2025-07-01] MEDS: haloperidol inj 5 mg/mL INJ 1 mL IM (10:08)
[2025-07-01] MEDS: LORazepam 1 MG/0.5 ML injection 2 MG IM (10:08)
--- NOTE | 2025-07-01 11:48 | PC.NURSE ---
Dr. Cordoba went to do pt H&P, he had already been awake and not slept since arriving on the unit. Pt is very delusional and paranoid. He confirmed with Dr. Cordoba that he did make threats to shoot himself, but states that he was only joking. After speaking with Dr. Cordoba he became increasingly aggitated. Dr. Cordoba ordered that we given him a B52 injection (see MAR) to help with the psychosis and paranoia. Gladis HERRERA, Zarina HERRERA, [place] Security, Antonina Security and myself entered the room to attempt to talk with pt and give him the shot willingly. Pt demanded that we all leave his room he was not taking any medications and yelling this is what happened with katieid He demanded that we give him a tyre finisher and examiner in the room, that this was all unlawful. Loi in security additionally attempted to speak with the pt and convince him to take the injections willingly. A code 10 was called at 0956 and at 1008 we put hands on the pt and placed him on his bed in a manual hold. Injections were given in bilateral arms (see MAR). Pt was then slowly released. He slowly began to deescalate and stayed in his room talking with Guanako and Loi in security . V/s were checked BP 115/81, P124, R20 and 97%. He cont to slowly calm down. As security left the room he laid down on his bed.
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
[2025-07-01 13:29] VITALS: BP 130/80; PULSE 100; RESP 16; TEMP 37; O2SAT 98
--- NOTE | 2025-07-01 18:56 | PC.NURSE ---
KATIANA's Lluvia and Miriam were in the harding doing shift change report when pt called them into his bathroom to show him toilet paper. He stated to them that we all caused this when we did his code 10 today. KATIANA's came and got this nurse to view the toilet paper. The toilet paper had a mixture of stool and bright red blood (small amount). Dr. Cordoba, Instrument Fitter and Shop Assistant have all been notified.
[2025-07-01 19:55] VITALS: BP 111/75; PULSE 79; RESP 18; TEMP 37.2; O2SAT 95
--- NOTE | 2025-07-01 20:31 | PC.NURSE ---
At approximately 2009, [facility] Rola Valdez and Shimon were rounding with patients in NPU. We stepped into Kranthi's room and Rola asked him how his care has been. Kranthi stated he didn't feel that he needed to be here, that he is not insane. He stated that he was given shots in his arms earlier today that he did not want, he said that no one told him what the meds were that was given to him. He went on to say he has had surgery on his bottom in the past and he has to be very careful about what he puts in his body because it might make his bottom bleed. Rola asked him if he would like our Medical Doctor to take a look at his bottom regarding the bleeding. Kranthi refused to have Medical assess him, he stated he is not bleeding anymore.
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
[2025-07-02 06:00] VITALS: BP 102/64; PULSE 81; RESP 18; TEMP 37; O2SAT 98
--- NOTE | 2025-07-02 09:02 | P.CONIM_ITS ---
Providers/Reason For Consult 2 Consulting Physician/Specialty*: dr oliveira general surgery Reason for Consult*: blood per rectum Attending Physician: Vipul Cordoba MD Primary Care Provider: Aileen Turner DO History of Present Illness History of Present Illness Kranthi Morales is a 40 year old male admitted to the psych unit for psychosis whom surgery was consulted for blood per rectum. Patient reports that he has had these episodes in the past when wiping. No family history of colon cancer. No weight loss. Denies incontinence. Medications/Allergies Home Medications ?Medication ?Instructions ?Recorded ?Confirmed ?Last Taken ?Type No Known Home Medications 06/30/2506/07 Unknown History Allergies Allergy/AdvReac Type Severity Reaction Status Date / Time silver nitrate Allergy Unknown Verified 04/22/25 11:06 venom-honey bee Allergy ALGY-Anaphy Verified 04/22/25 11:06 laxis Current Medications Generic Name Dose Route Start Last Admin Trade Name Freq PRN Reason Stop Dose Admin Diphenhydramine HCl 50 mg 06/30/25 14:54 07/01/25 10:08 Diphenhydramine 50 Mg/Ml Sdv 1ml IM 50 mg Q4H PRN Administration Severe Aggression Haloperidol Lactate 5 mg 06/30/25 14:54 07/01/25 10:08 Haloperidol Inj 5 Mg/Ml Inj 1 Ml IM 5 mg Q4H PRN Administration Severe Aggression Lorazepam 2 mg 06/30/25 14:54 07/01/25 10:08 Lorazepam 1 Mg/0.5 Ml Injection IM 2 mg Q4H PRN Administration Severe Aggression PFSH Acute 2 PFSH: Medical History (Updated 07/02/25 @ 13:13 by Prince Vega MD) Anal fissure No pertinent family history Surgical History History of cholecystectomy Lap. Family History Mother CAD (coronary artery disease) Diabetes Father Cancer Lymphoma Grandfather Cancer eye cancer/blood cancer Sister Psychiatric illness Bipolar Denies family history of Clotting disorder Dementia Hyperlipidemia Chronic kidney disease (CKD) Suicide Anesthesia complication Bleeding disorder Family history of premature coronary artery disease Lung disease Hypertension Stroke Social History Smoking and tobacco/nicotine status: current every day tobacco/nicotine user e- cigarettes Quit status (tobacco/nicotine): considering quitting Second hand smoke exposure: Yes Alcohol intake: never Substance/Drug Use: never Vitals/I&O/Wt Last Vital Signs Temp 98.6 F 07/02/25 06:00 Pulse 81 07/02/25 06:00 Resp 18 07/02/25 06:00 BP 102/64 07/02/25 06:00 Pulse Ox 98 07/02/25 06:00 O2 Del Method Room Air 07/02/25 06:00 Weight last 48 hrs Weight 300 lb Physical Exam 2 Narrative: rrr unlabored breathing ra abdomen soft, nt, nd deferred perineal exam due to psychosis Data 07/02/25 10:30 07/02/25 10:30 A&P Assessment and plan 1. Blood per rectum: Plan: 40yo male whom surgery was consulted for blood per rectum. Clinical picture most consistent with intermittent hemorrhoidal bleed. Recommmend outpatient colonoscopy once discharged from hospital. Discussed with patient and answered all of his questions. Patient agreeable with this plan. This was also discussed with the consulting hospitalist. PDMP PDMP Reviewed: Not Reviewed Coding Level of Care Code 60058 Diagnoses Blood per rectum K62.5
--- NOTE | 2025-07-02 10:06 | NUR.SHIFT ---
Pt states that he slept fine No reports of anxiety/depression. No reports of SI/HI or hallucinations. He rates his back soreness 3/10. He is cooperative with assessment, but paranoid and guarded.
[2025-07-02 10:39] LABS: Hematocrit 47.5 % (37-53); Hemoglobin 16.00 g/dL (11.27-16.99); Mean Corpuscular HGB Conc 33.7 g/dL (30-55); Mean Corpuscular Hemoglobin 29.6 pg (27-33); Mean Corpuscular Volume 87.8 fl (82-101); Nucleated Red Blood Cells % 0 %; Platelet Count 208 10^3/cmm (157-399); Red Blood Count 5.41 10^6/uL (3.85-5.65); White Blood Count 7.86 10^3/uL (3.29-11.43)
[2025-07-02 11:00] LABS: Alanine Aminotransferase 65 U/L (0-41); Albumin Level 4.1 g/dL (3.5-5.2); Alkaline Phosphatase 83 U/L (40-130); Anion Gap 14.9 (5-19); Aspartate Amino Transferase 53 U/L (0-40); Blood Urea Nitrogen 11 mg/dL (6-20); Calcium 8.7 mg/dL (8.5-10.5); Carbon Dioxide 24 mmol/L (22-29); Chloride 104 mmol/L (98-107); Creatinine Clr Calc Pharmacy 207.1798; Globulin 2.7 g/dL (1.3-4.6); Glucose 112 mg/dL (65-115); Osmolality Calculated 288 mOsm/kg (285-295); Potassium 3.9 mmol/L (3.5-5.1); Sodium 139 mmol/L (136-145); Total Protein 6.8 g/dL (6.6-8.7)
--- NOTE | 2025-07-02 13:07 | P.PN_ITS ---
Subjective 2 Subjective: no further bleeding per rectum Vitals/I&O/Wt Last Vital Signs Temp 98.6 F 07/02/25 06:00 Pulse 81 07/02/25 06:00 Resp 18 07/02/25 06:00 BP 102/64 07/02/25 06:00 Pulse Ox 98 07/02/25 06:00 O2 Del Method Room Air 07/02/25 06:00 Weight last 48 hrs Weight 136.078 kg Physical Exam 2 Const: COMMON NORMALS: no acute distress, average body habitus, patient oriented x3, no limitations, healthy appearing, alert and well nourished HENMT: COMMON NORMALS: normocephalic and atraumatic HEAD & SCALP: n ormocephalic and atraumatic Eye: COMMON NORMALS: Equal, round and reactive pupils present and EOMs intact bilaterally PUPIL: Yes Equal, round and reactive pupils present Cardio: COMMON NORMALS: regular rate and regular rhythm RATE: regular rate RHYTHM: regular rhythm Extremity: COMMON NORMALS: full ROM Neuro: COMMON NORMALS: patient oriented x3 SENSORIUM/ORIENTATION: Yes alert Data 07/02/25 10:30 07/02/25 10:30 A&P Assessment and plan 1. Blood per rectum: Plan: 40 year old male presenting to neuropsych for psychosis. Medicine consulted for blood per rectum. BRBPR - reported on on a tissue paper used to wipe anal region at toileting - patient denies melena - he has history of prior anal fissure that required surgery - H&H stable at 18 of hemoglobin and 52 of hematocrits - surgery was consulted over night. Acute psychosis - Psychiatric illness such as psychosis and paranoia, psychiatry following. Disposition - neuropsych on 96 hour hold. PDMP PDMP Reviewed: Not Reviewed Attestations 2 Medical Necessity Statement*: Ongoing neuropsych admission for psychosis. Time Spent in Patient Care: 16 - 35 minutes (>than 50% of time sp ent in counselling and/or direct pt care on unit) . Coding Level of Care Code Acute Code for [facility] Fwd Diagnoses Blood per rectum K62.5
[2025-07-02 14:00] VITALS: BP 158/89; PULSE 92; RESP 15; O2SAT 95
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
[2025-07-02 20:21] VITALS: BP 123/89; PULSE 120; RESP 22; TEMP 37.3; O2SAT 95
[2025-07-03 06:00] VITALS: BP 101/66; PULSE 76; RESP 20; TEMP 36.6; O2SAT 98
--- NOTE | 2025-07-03 09:27 | NUR.SHIFT ---
Pt states that he slept decent last night. He reports anxiety a 4/10 and attributes that to just being here still. Depression a 0/10. Denies SI/Hi or hallucinations. He cont to report back pain as more of a soreness 3/10. He is cooperative with assessment, but is still very irritable and resistive to care.
--- NOTE | 2025-07-03 11:20 | P.PN_ITS ---
Subjective 2 Subjective: No new bleeding. Vitals/I&O/Wt Last Vital Signs Temp 97.9 F 07/03/25 06:00 Pulse 76 07/03/25 06:00 Resp 20 H 07/03/25 06:00 BP 101/66 07/03/25 06:00 Pulse Ox 98 07/03/25 06:00 O2 Del Method Room Air 07/03/25 06:00 Physical Exam 2 Narrative: Physical Exam Const: no acute distress, average body habi tus, patient orien michael x3, no limitat ions, healthy appe aring, alert and w ell nourished HENMT: normocephalic and atraumatic Eye: Equal, round and r eactive pupils pre sent and EOMs inta ct bilaterally Cardio: Regular rate and r egular rhythm Extremity: full ROM Neuro: alert/ oriented x3 , no FND. Data 07/02/25 10:30 07/02/25 10:30 A&P Assessment and plan 1. Blood per rectum: Plan: 40 year old male presenting to neuropsych for psychosis. Medicine consulted for blood per rectum. BRBPR - reported on on a tissue paper used to wipe anal region at toileting - patient denies melena - he has history of prior anal fissure that required surgery - H&H stable at 18 of hemoglobin and 52 of hematocrits - surgery was consulted over night: no plans for interventions. - added miralax BID PRN. Acute psychosis - Psychiatric illness such as psychosis and paranoia, psychiatry following. Disposition - neuropsych on 96 hour hold. - has been refusing labs. - may need anoscopy vs. colonoscopy as outpatient. Can attempt to arrange with his prior surgeon that repaired his fissure. PDMP PDMP Reviewed: Not Reviewed Attestations 2 Medical Necessity Statement*: ongoing inpatient psychiatric care for psychosis. Time Spent in Patient Care: 16 - 35 minutes (>than 50% of time sp ent in counselling and/or direct pt care on unit) . Coding Level of Care Code Acute Code for Chg Fwd Diagnoses Blood per rectum K62.5
--- NOTE | 2025-07-03 13:27 | P.NPUPN_ITS ---
Subjective NPU 2 Subjective: 40-year-old male who presents with psych osis currently on a hold. The patient had refused to allow blood work to be completed stating that the treatment team was trying to suck the blood out of him. He had minimized having any current problems. He had slept intermittently at night but reported that he was using meditation to stay awake. He continued to suggest that people were somehow messing with his home and reported that he was struggling with dealing with his sisters mental health issues. He had suggested that his family had largely been responsible at creating stress for him as he stated that no one was helping him care for his father. Mental Status Exam 2 MSE Comments: The patient was pleasant and cooperative on interview, seen pacing the harding and reporting feeling fine. He had continued to show evidence of mild psychomotor activation. His gait appeared within normal limits. His hygiene was fair. There was no evidence of any abnormal involuntary motor movements or tics appreciated. His speech was normal in regards to rate and volume with a monotone quality. His mood was described as fine. His affect appeared somewhat blunted. His thought process was linear, logical, and goal-directed. His thought content revealed no suicidal or homicidal ideation currently. There was evidence of paranoid delusions and ideas of reference. He did not actively appear to be responding to internal stimuli. He was alert and oriented to person, place, time, and situation. His insight is limited. His judgment appeared poor. His impulse control appeared guarded. Vitals/I&O/Wt Last Vital Signs Temp 97.9 F 07/03/25 06:00 Pulse 76 07/03/25 06:00 Resp 20 H 07/03/25 06:00 BP 101/66 07/03/25 06:00 Pulse Ox 98 07/03/25 06:00 O2 Del Method Room Air 07/03/25 06:00 Data NPU 07/02/25 10:30 07/02/25 10:30 A&P Assessment and plan 1. Blood per rectum: Plan: 40 year old male presenting to neuropsych for psychosis. Medicine consulted for blood per rectum. Patient refusing medications at this time. 1. Continue to encourage individual and milieu therapy. 2. Patient remains on 96 hour hold with 21 day hold files with patient refusing medications currently 3. Continue to monitor for evidence of worsening psychosis. Awaiting court hearing for 21 day hospitalization. PDMP PDMP Reviewed: Not Reviewed Involuntary Hold Information 2 Hold Status: Legal Status: 96 Hour Hold Date/Time Hold Expires: 9 6^07/06/25@1320 Attestations NPU 2 Medical Necessity Statement*: Inpatient hospitalization is medically necessary and deemed to ?be ?the clinically appropriate intervention ?at this time.? We will monitor/initiate medications and make changes as indicated.? The patient?s likely length of stay 7-10 days. Coding Level of Care Code Acute Code for Chg Fwd Diagnoses Blood per rectum K62.5
[2025-07-03 13:31] VITALS: BP 147/98; PULSE 90; RESP 16; TEMP 36.6; O2SAT 97
[2025-07-03 20:00] VITALS: BP 135/87; PULSE 95; RESP 20; TEMP 37.2; O2SAT 95
[2025-07-04 06:00] VITALS: BP 104/66; PULSE 78; RESP 20; TEMP 36.9; O2SAT 98
[2025-07-04 13:19] VITALS: BP 133/88; PULSE 98; RESP 16; TEMP 37.1; O2SAT 96
--- NOTE | 2025-07-04 15:21 | PC.NURSE ---
Pt. asked if his mother was on his HIPPA form signee said Kristi Morales pt. stated yes and then asked to see the form to make sure it was on there like signee said.
--- NOTE | 2025-07-04 19:00 | P.NPUPN_ITS ---
Subjective NPU 2 Subjective: 40-year-old male who presents with psych osis currently on a hold. The patient had reported no thoughts of hurting himself or others. He had continued to report some concerns about a variety of different issues going on in the [place] including issues with supply chain. He had stated that he had spoken to his mother and she would be present at that hearing. He had reported having inability to fall asleep but reported that he did not wish to take any medications. He had reported that he was unable to complete the workup and give blood because he was concerned that his blood pressure was dropping. He had denied any depressed mood. He had reported having struggles with managing his worries. He had reported that he had not spoken with his sister and was not angry at her or her boyfriend. Mental Status Exam 2 MSE Comments: The patient was pleasant and cooperative on interview, who appeared in mild distress. There was evidence of mild psychomotor retardation. His gait appeared within normal limits. His hygiene was fair. There was no evidence of any abnormal involuntary motor movements or tics appreciated. His speech was normal in regards to rate and volume with a monotone quality. His mood was described as fine. His affect appeared somewhat blunted. His thought process was linear, logical, and goal-directed. His thought content revealed no suicidal or homicidal ideation currently. There were no overt delusions appreciated but some ideas of reference remained present. He did not actively appear to be responding to internal stimuli. He was alert and oriented to person, place, time, and situation. His insight is limited. His judgment appeared poor. His impulse control appeared guarded. Vitals/I&O/Wt Last Vital Signs Temp 98.7 F 07/04/25 13:19 Pulse 98 07/04/25 13:19 Resp 16 07/04/25 13:19 BP 133/88 07/04/25 13:19 Pulse Ox 96 07/04/25 13:19 O2 Del Method Room Air 07/04/25 13:19 Data NPU 07/02/25 10:30 07/02/25 10:30 A&P Assessment and plan 1. Paranoia: 2. Unspecified psychosis: 3. Blood per rectum: Plan: 40 year old male presenting to neuropsych for psychosis. Medicine consulted for blood per rectum. Patient refusing medications at this time. 1. Continue to encourage individual and milieu therapy. 2. Patient remains on 96 hour hold with 21 day hold files with patient refusing medications currently 3. Continue to monitor for evidence of worsening psychosis. Awaiting court hearing for 21 day hospitalization tommorow. PDMP PDMP Reviewed: Not Reviewed Involuntary Hold Information 2 Hold Status: Legal Status: 96 Hour Hold Date/Time Hold Expires: 07/06/25 @ 13:20 Attestations NPU 2 Medical Necessity Statement*: Inpatient hospitalization is medically necessary and deemed to ?be ?the clinically appropriate intervention ?at this time.? We will monitor/initiate medications and make changes as indicated.? The patient?s likely length of stay 5-7 days. Coding Level of Care Code Acute Code for Chg Fwd Diagnoses Paranoia F22 Unspecified psychosis F29 Blood per rectum K62.5
[2025-07-04 22:00] VITALS: BP 132/89; PULSE 107; RESP 18; TEMP 36.4; O2SAT 95
[2025-07-05 06:00] VITALS: RESP 16
--- NOTE | 2025-07-05 06:48 | PC.NURSE ---
vitals not collected per nurse, resp. 16, pt was sleeping soundly, nurse aware
[2025-07-05 09:27] VITALS: BP 130/94; PULSE 90; RESP 18; TEMP 36.8; O2SAT 96
[2025-07-05 09:47] LABS: Hematocrit 50.7 % (37-53); Hemoglobin 17.30 g/dL (11.27-16.99); Mean Corpuscular HGB Conc 34.1 g/dL (30-55); Mean Corpuscular Hemoglobin 30.1 pg (27-33); Mean Corpuscular Volume 88.2 fl (82-101); Nucleated Red Blood Cells % 0 %; Platelet Count 225 10^3/cmm (157-399); Red Blood Count 5.75 10^6/uL (3.85-5.65); White Blood Count 7.39 10^3/uL (3.29-11.43)
[2025-07-05 10:09] LABS: Anion Gap 15.2 (5-19); Blood Urea Nitrogen 12 mg/dL (6-20); Calcium 9.4 mg/dL (8.5-10.5); Carbon Dioxide 24 mmol/L (22-29); Chloride 104 mmol/L (98-107); Creatinine Clr Calc Pharmacy 207.1798; Glucose 107 mg/dL (65-115); Osmolality Calculated 288 mOsm/kg (285-295); Potassium 4.2 mmol/L (3.5-5.1); Sodium 139 mmol/L (136-145)
--- NOTE | 2025-07-05 14:30 | P.NPUDS_ITS ---
Diagnoses at Discharge Discharge Diagnosis 1. Paranoia: 2. Unspecified psychosis: 3. Blood per rectum: Reason for Visit Reason for Visit: 96 HOUR Hospital Course Hospital Course The patient had presented on the unit and was extremely guarded initially. He had required the use of Haldol as needed as he had been agitated. He had shown evidence of paranoia and initially had acknowledged having made statements threatening his sisters boyfriend as he reported that he had informed him that he was going to put a bullet in his head. He had reported that he had not been sleeping well. This was evident on the milieu as well has he had struggled with falling asleep. He had shown evidence of considerable distrust of others at times stating that he was concerned about the government and reporting that he had a general mistrust of others. He had stated that he was living on his properties shared by his mother and his sister. He had refused any medications to manage his anxiety or psychotic symptoms. He was compliant and was redirectable on the milieu for his last 3 days here in the hospital. A 21-day hold was initiated but ultimately was not carried forward as the mother had insisted that the patient was okay to return home and the patient had stated that he had some spoken with his mother and stated that he was comfortable with returning home. He was agreeable to putting away his firearms and was agreeable to having an appointment scheduled for follow-up. Surgery and medicine were both consulted regarding his rectal bleeding. It was deemed that an outpatient colonoscopy would be recommended and no surgery was required. The patient's hemoglobin and hematocrit appeared stable at the time of discharge. There was a general medical evaluation which appeared to be in normal limits and revealed no acute processes. At the time of discharge, the thousand he was denied and psychosis still appeared to be present. The patient was ultimately deemed to be absent any credible lethality and given his refusal to consider medications he had achieved maximal medical benefit from an inpatient hospitalization as forced medications appeared to be less than optimal at this time for this patient. Thus, he was discharged. Involuntary Hold Information Hold Status: Legal Status: 96 Hour Hold Date/Time Hold Expires: 07/06/25 @ 13:20 Mental Status Exam MSE Comments: The patient was pleasant and cooperative on interview, and appeared in mild distress. There was evidence of mild psychomotor retardation. His gait appeared within normal limits. His hygiene was fair. There was no evidence of any abnormal involuntary motor movements or tics appreciated. His speech was normal in regards to rate and volume with a monotone quality. His mood was described as fine. His affect remained blunted. His thought process was linear, logical, and goal-directed. His thought content revealed no suicidal or homicidal ideation currently. There were no overt delusions appreciated but some ideas of reference remained present. He did not actively appear to be responding to internal stimuli. He was alert and oriented to person, place, time, and situation. His insight is limited. His judgment appeared fair. His impulse control appeared fair. Discharge Data Studies Completed and Pending: Laboratory Results WBC 7.39 10^3/uL (3.2 9-11.43) 07/05/25 09:34 RBC 5.75 10^6/uL (3.8 5-5.65) H 07/05/25 09:34 Hgb 17.30 g/dL (11.27 -16.99) H 07/05/25 09:34 Hct 50.7 % (37-53) 07/05/25 09:34 MCV 88.2 fl (82-101) 07/05/25 09:34 MCH 30.1 pg (27-33) 07/05/25 09:34 MCHC 34.1 g/dL (30-55) 07/05/25 09:34 RDW 13.0 % (12.1-15.1 ) 07/05/25 09:34 Plt Count 225 10^3/cmm (157 -399) 07/05/25 09:34 MPV 8.2 fL (7.4-10.4) 07/05/25 09:34 Neut % (Auto) 63.2 % 07/05/25 09:34 Lymph % (Auto) 24.0 % 07/05/25 09:34 Ballard % (Auto) 10.4 % 07/05/25 09:34 Eos % (Auto) 1.6 % 07/05/25 09:34 Baso % (Auto) 0.7 % 07/05/25 09:34 Neut # (Auto) 4.67 10^3/uL (1.8 -7.7) 07/05/25 09:34 Lymph # (Auto) 1.8 10^3/uL (0.8- 4.8) 07/05/25 09:34 Ballard # (Auto) 0.8 10^3/uL (0.2- 0.9) 07/05/25 09:34 Eos # (Auto) 0.1 10^3/uL (0.0- 0.8) 07/05/25 09:34 Baso # (Auto) 0.1 10^3/uL (0.0- 0.1) 07/05/25 09:34 Nucleated RBC % (a uto) 0 % 07/05/25 09:34 Nucleated RBCs # 0.0 /100WBC 07/05/25 09:34 Sodium 139 mmol/L (136-1 45) 07/05/25 09:34 Potassium 4.2 mmol/L (3.5-5 .1) 07/05/25 09:34 Chloride 104 mmol/L (98-10 7) 07/05/25 09:34 Carbon Dioxide 24 mmol/L (22-29) 07/05/25 09:34 Anion Gap 15.2 (5-19) 07/05/25 09:34 BUN 12 mg/dL (6-20) 07/05/25 09:34 Creatinine 0.7 mg/dL (0.7-1. 2) 07/05/25 09:34 GFR Calculation 126.2 mL/min (90- 130) 07/05/25 09:34 Glucose 107 mg/dL (65-115 ) 07/05/25 09:34 Calculated Osmolal ity 288 mOsm/kg (285- 295) 07/05/25 09:34 Calcium 9.4 mg/dL (8.5-10 .5) 07/05/25 09:34 Total Bilirubin 0.6 mg/dL (0.15-1 .2) 07/02/25 10:30 AST 53 U/L (0-40) H 07/02/25 10:30 ALT 65 U/L (0-41) H 07/02/25 10:30 Alkaline Phosphata se 83 U/L (40-130) 07/02/25 10:30 Total Protein 6.8 g/dL (6.6-8.7 ) 07/02/25 10:30 Albumin 4.1 g/dL (3.5-5.2 ) 07/02/25 10:30 Globulin 2.7 g/dL (1.3-4.6 ) 07/02/25 10:30 TSH 1.21 uIU/mL (0.27 -4.20) 06/30/25 13:33 Urine Color Yellow (Yellow) 06/30/25 14:30 Urine Appearance Clear (CLEAR) 06/30/25 14:30 Urine pH 6.0 (5-7) 06/30/25 14:30 Ur Specific Gravit y 1.023 (1.005-1.0 30) 06/30/25 14:30 Urine Protein Negative (Negati ve) 06/30/25 14:30 Urine Glucose (UA) Negative (Normal ) 06/30/25 14:30 Urine Ketones Negative (Negati ve) 06/30/25 14:30 Urine Blood Negative (Negati ve) 06/30/25 14:30 Urine Nitrate Negative (Negati ve) 06/30/25 14:30 Urine Bilirubin Negative (Negati ve) 06/30/25 14:30 Urine Urobilinogen 0.2 mg/dL (Negati ve) 06/30/25 14:30 Ur Leukocyte Corry ase Negative (Negati ve) 06/30/25 14:30 Urine RBC 0-2 /hpf (0-2) 06/30/25 14:30 Urine WBC 0-5 /hpf (0-5) 06/30/25 14:30 Ur Squamous Epith Cells 0-5 /hpf (0-5) 06/30/25 14:30 Amorphous Sediment Not Reportable 06/30/25 14:30 Urine Bacteria None seen /hpf (N ONE) 06/30/25 14:30 Hyaline Casts 0-4 /lpf H 06/30/25 14:30 Salicylates < 0.3 mg/dL (3-10 ) L 06/30/25 13:33 Urine Opiates Scre en Negative ng/mL (N egative) 06/30/25 14:30 Acetaminophen < 5.0 ug/mL (10-3 0) L 06/30/25 13:33 Ur Barbiturates Sc reen Negative ng/mL (N egative) 06/30/25 14:30 Ur Phencyclidine S crn Negative ng/mL (N egative) 06/30/25 14:30 Ur Amphetamines Sc reen Negative ng/mL (N egative) 06/30/25 14:30 U Benzodiazepines Scrn Negative ng/mL (N egative) 06/30/25 14:30 Urine Cocaine Scre en Negative ng/mL (N egative) 06/30/25 14:30 U Marijuana (THC) Screen Negative ng/mL (N egative) 06/30/25 14:30 Ethyl Alcohol < 10 mg/dL (0-10) 06/30/25 13:33 Vitals: Last Vital Signs Temp 98.2 F 07/05/25 09:27 Pulse 90 07/05/25 09:27 Resp 18 07/05/25 09:27 BP 130/94 07/05/25 09:27 Pulse Ox 96 07/05/25 09:27 O2 Del Method Room Air 07/04/25 22:00 Discharge Plan Discharge Patient Disposition: Home Condition: Stable Prescriptions: No Action No Known Home Medications Discharge Order = DC NOW: Discharge Order (Routine); Ordered 07/05/25 Ordered By: Vipul Cordoba Referrals: [employer] [Other] [facility] [Outside] Aileen Turner DO [Primary Care Provider, Family Practice] Discharge Diet: Usual diet Discharge Activity: Resume usual activity Patient Instructions: Generalized Anxiety Disorder (ED), Opioid Safety, Patient Portal & Liu Instructions Discharge Attestations NPU Time Spent in Discharge Care*: less than 30 min Coding Level of Care Code Acute Code for Chg Fwd Diagnoses Paranoia F22 Unspecified psychosis F29 Blood per rectum K62.5
[2025-07-05 14:46] VITALS: BP 130/94; PULSE 90; RESP 18; TEMP 36.8; O2SAT 96
== END 2025-07-05 15:20 | disposition home or self-care (01) | DRG 885 ==
LOC: ER 13:51 → NP 14:30
PROVIDERS: Internal Medicine; Admitting Provider Psychiatry & Neurology Psychiatry; Emergency Provider Emergency Medicine; PCP Family Medicine; Visit Provider Psychiatry & Neurology Psychiatry
DX: F29 Unspecified psychosis not due to a substance or known physiological condition (principal); K92.1 Melena; F41.9 Anxiety disorder, unspecified; F17.290 Nicotine dependence, other tobacco product, uncomplicated; R45.850 Homicidal ideations; E66.9 Obesity, unspecified; Z68.39 Body mass index [BMI] 39.0-39.9, adult; Z81.8 Family history of other mental and behavioral disorders
CPT/HCPCS: 36415; 80048; 80053; 80306; 80307; 81001; 84443; 85025; 93005; 96372; 97150; 97165; 99285; J1200; J1630; J2060